=== PATIENT | female | born 1980 | race Caucasian/White ===

== ENCOUNTER 2017-04-22 22:14 | Inpatient (IN) | payer BC ==
[~2017-04-22] VITALS: Ht 162.6 cm; Wt 63.1 kg
[2017-04-22 22:18] VITALS: Ht 162.6 cm; Wt 63.1 kg
--- NOTE | 2017-04-22 22:49 | ERD ---
ER Documentation Chief Complaint Chief Complaint diff breathing, CP x 4 days; had heart sx last mar 28, 2017;not in distress HPI The patient is a 36-year-old female, presenting to the ER because of chronic shortness of breath after she had mitral valve replacement at [place] on March 28, 2017. She saw her surgeon about a week and a half ago and was told that those symptoms were normal. She complains of worsening shortness of breath and left-sided neck pain and left shoulder pain and intermittent left chest pain for the last 4 days. She used to take lots of medication for her chronic low back pain including meloxicam, Neurontin, tramadol, ibuprofen however she stopped it about 2 months ago due to surgery. She denies pleuritic chest pain, abdominal pain, vomiting, dysuria, diarrhea. She does not drink, smokes socially Past medical history: Chronic low back pain, asthma Past medical history: Mitral valve replacement ROS All systems reviewed and are negative except as per history of present illness. Medications Home Meds Reported Medications Albuterol Sulfate* (Ventolin HFA*) 18 Gm Hfa.aer.ad, 2 PUFF INHALATION Q6H, #1 INHALER 04/22/17 Warfarin Sodium* (Warfarin Sodium*) 4 Mg Tablet, 4 MG PO DAILY, TAB 04/22/17 Metoprolol Succinate* (Toprol XL*) 25 Mg Tab.sr.24h, 25 MG PO BID, #30 TAB 04/22/17 Zolpidem Tartrate* (Zolpidem Tartrate*) 10 Mg Tablet, 10 MG PO QHS Y for INSOMNIA, #30 TAB 04/22/17 Allergies Allergies: Coded Allergies: No Known Allergy (Verified , 04/22/17) PMhx/Soc History of Surgery: Yes (lumbar 07, galbladder 10) Anesthesia Reaction: No Hx Neurological Disorder: No Hx Respiratory Disorders: No Hx Cardiac Disorders: No Hx Psychiatric Problems: Yes (Anxiety, Depression) Hx Miscellaneous Medical Probl: Yes (Chronic Pain) Hx Alcohol Use: No Hx Substance Use: No Hx Tobacco Use: No Physical Exam Vitals Vital Signs Date Time Temp Pulse Resp B/P Pulse Ox O2 Delivery O2 Flow Rate FiO2 04/23/17 01:02 68 16 107/62 98 Room Air 04/22/17 22:18 99.6 95 20 102/61 100 Physical Exam Const: No acute distress. Head: Atraumatic. Eyes: Normal Conjunctiva. ENT: Normal External Ears, Nose and Mouth. Neck: Full range of motion. No meningismus. Resp: Clear to auscultation bilaterally. Cardio: Regular rate and rhythm. Abd: Soft, non distended, normal bowel sounds, non tender. Skin: No petechiae or rashes. Back: No midline or flank tenderness. Ext: No cyanosis, or edema. Neur: Awake and alert. No focal deficit Psych: Normal Mood and Affect. Result Diagram: 04/22/17229904/22/172299 Results 24 hrs Laboratory Tests Test 04/22/17 23:00 White Blood Count 15.110^3/ul Red Blood Count 4.0910^6/ul Hemoglobin 12.1g/dl Hematocrit 36.5% Mean Corpuscular Volume 89.2fl Mean Corpuscular Hemoglobin 29.6pg Mean Corpuscular Hemoglobin Concent 33.2g/dl Red Cell Distribution Width 13.3% Platelet Count 97962^3/UL Mean Platelet Volume 9.3fl Neutrophils % 71.0% Lymphocytes % 16.7% Monocytes % 8.5% Eosinophils % 2.6% Basophils % 0.5% Nucleated Red Blood Cells % 0.0/100WBC Neutrophils # 10.710^3/ul Lymphocytes # 2.510^3/ul Monocytes # 1.310^3/ul Eosinophils # 0.410^3/ul Basophils # 0.110^3/ul Nucleated Red Blood Cells # 0.010^3/ul Prothrombin Time 16.7Sec Prothrombin Time Ratio 1.3 INR International Normalized Ratio 1.34 Activated Partial Thromboplast Time 34.4Sec D-Dimer 1238.48ng/ml D-Dimer Comment Sodium Level 137mmol/L Potassium Level 3.6mmol/L Chloride Level 104mmol/L Carbon Dioxide Level 25mmol/L Anion Gap 12 Blood Urea Nitrogen 10mg/dl Creatinine 0.78mg/dl Glucose Level 89mg/dl Calcium Level 9.1mg/dl Troponin I < 0.012ng/ml B-Type Natriuretic Peptide 198PG/ML Current Medications Medications (Trade) Dose Ordered Sig/Kandace Route PRN Reason Start Time Stop Time Status Last Admin Dose Admin Sodium Chloride (NS) 100 ml @ ud STK-MED ONCE .ROUTE 04/23/17 00:42 04/23/17 00:43 DC 04/23/17 01:03 Iohexol 150 ml 150 ml STK-MED ONCE .ROUTE 04/23/17 00:42 04/23/17 00:43 DC 04/23/17 01:03 Sodium Chloride (NS) 500 ml @ 500 mls/hr Q1H ONCE IV 04/23/17 01:30 04/23/17 02:29 Procedures/MDM EKG: Read by emergency physician Rate/Rhythm: Normal Sinus Rhythm 91 beats/min QRS, ST, T-waves: No ST elevation, no T inversion, LAE, NS T abn Impression: Abnormal EKG [address] [address] Radiology Main Line: [phone] DIAGNOSTIC IMAGING REPORT Patient: MAURY PERALTA : 1980 Age: 36 Sex: F MR #: [id number] DOS: 04/22/17 2258 Ordering MD: SHERICE MAX MD Location: E/R Room/Bed: PROCEDURE: Portable chest x-ray. CLINICAL INDICATION: 36-year of age, female. Chest pain TECHNIQUE: Portable AP view of the chest. COMPARISON: None available. FINDINGS: Medical devices: There are wires projected over the heart that likely represent abandoned epicardial pacing wires. Sternal wires from previous cardiac surgery. There is a prosthetic heart valve. Cardiomediastinal contours are within normal limits. Lungs are clear. Negative for pleural effusion or pneumothorax. No acute bony abnormality. Additional comment: None. IMPRESSION: 1. Negative for evidence of an acute chest process. 2. Previous cardiac surgery with a prosthetic heart valve. Recommend correlation with surgical history. Suspected abandoned epicardial pacing wires. RPTAT: HCTS Physician Ra Date Time Electronically viewed and signed by Physician Ra on 04/22/2017 23: 42 CS/ CC: SHERICE MAX MD [address] [address] Radiology Main Line: [phone] DIAGNOSTIC IMAGING REPORT Patient: MAURY PERALTA : 1980 Age: 36 Sex: F [id number] DOS: 04/23/17 0004 Ordering MD: SHERICE MAX MD Location: E/R Room/Bed: PROCEDURE: CTA CHEST WITH CONTRAST CLINICAL INDICATION: 36-year-old female with shortness of breath. TECHNIQUE: The study was performed utilizing a [employer] - On[employer] VCT 64-slice CT scanner. Direct axial sections were obtained from the thoracic inlet through the chest to the upper abdomen with a bolus injection of 100 cc of Omnipaque- 300 nonionic contrast material. Sagittal, coronal and maximal intensity projections re-formations were obtained. One or more of the following dose reduction techniques were utilized: automated exposure control, adjustment of the mA and/or kV according to patient's size and/or use of iterative reconstruction technique. DICOM images are available. The images were reviewed on a PACS workstation. CTD/vol = 35.5 mGy; Total Exam DLP = 313.0 mGy- cm. COMPARISON: Chest x-ray April 22, 2017. FINDINGS: The patient has had a prior median sternotomy. There is a mitral valvular replacement present. There is minimal pericardial thickening. Retained epicardial pacer wires are seen. The aorta is without aneurysmal dilatation or dissection. There are small lymph nodes seen within the mediastinum which are not pathologic by size criteria. The main pulmonary artery is mildly enlarged measuring 3.4 cm. The central pulmonary arteries are without evidence for filling defect to suggest pulmonary embolus or thrombus. Evaluation of the distal pulmonary arterial branches is limited secondary to incomplete opacification. There is no evidence for an infiltrate. No abnormal soft tissue masses or nodular densities are visualized. There is no evidence for a pneumothorax. Scans through the upper abdomen reveals that the upper liver is unremarkable. Surgical clips are present within the gallbladder fossa from prior cholecystectomy. The adrenal glands have a normal appearance. The upper kidneys are functional and are without evidence for obstruction. IMPRESSION: 1. No CTA evidence for thoracic aortic aneurysm/dissection or central pulmonary embolus. 2. Status post median sternotomy with mitral valvular replacement. 3. Retained epicardial pacer wires. 4. Status post cholecystectomy. .Mahendra Houston MD, MD Date Time Electronically viewed and signed by .Mahendra Houston MD, MD on 04/23/2017 01:23 .M/ CC: SHERICE MAX MEDICAL MAKING DECISION: The patient is a 36-year-old female, presenting with acute on chronic chest pain after mitral valve replacement, there is a retained pacemaker wire. Her INR is subtherapeutic, she was treated with her regular dose of Coumadin 4 mg daily, And normal saline 500 mL for clinical dehydration with good response The differential diagnoses considered include but are not limited to acute coronary syndrome, acute myocardial infarction, pericarditis, pulmonary embolism , aortic dissection, pneumonia, pleural effusion, pneumothorax, GERD, chest wall pain. Departure Diagnosis: Primary Impression: Chest pain Additional Impression: Subtherapeutic international normalized ratio (INR) Condition: Stable Comments I discussed the findings with the patient. I discussed the patient with the on- call hospitalist Dr. Guerrero at 1:30 AM who was made aware of the lab, the treatment, the patient condition. The patient is admitted to telemetry for 24 hour observation Disclaimer: Inadvertent spelling and grammatical errors are likely due to EHR/ dictation software use and do not reflect on the overall quality of patient care. Also, please note that the electronic time recorded on this note does not necessarily reflect the actual time of the patient encounter. SHERICE MAX MD Apr 22, 2017 22:49
[2017-04-22] MEDS ORDERED: ZOLP10TA5 PO (23:18)
[2017-04-22] MEDS ORDERED: WARF4TAB52 PO (23:19)
[2017-04-22] MEDS ORDERED: METO-335 PO (23:19)
[2017-04-22] MEDS ORDERED: ALBU18HF INHALATION (23:20)
[2017-04-22 23:36] LABS: BASOPHIL # 0.1 10^3/ul (0.0-0.1); BASOPHILS % 0.5 % (0.0-2.0); EOSINOPHILS # 0.4 10^3/ul (0.0-0.5); EOSINOPHILS % 2.6 % (0.0-7.0); HEMATOCRIT 36.5 % (37.0-47.0); HEMOGLOBIN 12.1 g/dl (12.0-16.0); LYMPHOCYTES # 2.5 10^3/ul (0.8-2.9); LYMPHOCYTES % 16.7 % (15.0-51.0); MEAN CORPUSCULAR HEMOGLOBIN 29.6 pg (29.0-33.0); MEAN CORPUSCULAR HGB CONC 33.2 g/dl (32.0-37.0); MEAN CORPUSCULAR VOLUME 89.2 fl (82.0-101.0); MEAN PLATELET VOLUME 9.3 fl (7.4-10.4); MONOCYTE # 1.3 10^3/ul (0.3-0.9); MONOCYTES % 8.5 % (0.0-11.0); NEUTROPHIL # 10.7 10^3/ul (1.6-7.5); PLATELET COUNT 396 10^3/UL (140-415); RED BLOOD COUNT 4.09 10^6/ul (4.20-5.40); RED CELL DISTRIBUTION WIDTH 13.3 % (11.5-14.5); WHITE BLOOD COUNT 15.1 10^3/ul (4.8-10.8)
--- NOTE | 2017-04-22 23:42 | RADRPT ---
PROCEDURE: Portable chest x-ray. CLINICAL INDICATION: 36-year of age, female. Chest pain TECHNIQUE: Portable AP view of the chest. COMPARISON: None available. FINDINGS: Medical devices: There are wires projected over the heart that likely represent abandoned epicardia l pacing wires. Sternal wires from previous cardiac surgery. There is a prosthetic heart valve. Cardiomediastinal co ntours are within normal limits. Lungs are clear. Negative for pleural effusion or pneumothorax. No acute bony abnormality. Additional comment: None. IMPRESSION: 1. Negative for evidence of an acute chest process. 2. Previous cardiac surgery with a prosthetic heart valve. Recommend correlation with surgical histo ry. Suspected abandoned epicardial pacing wires. RPTAT: HCTS Physician Ra Date Time Electronically viewed and signed by Felipe Knott Physician on 04/22/2017 23:42 CS/
[2017-04-22 23:54] LABS: INR 1.34; PROTIME 16.7 Sec (12.2-14.2); PT RATIO 1.3
[2017-04-22 23:55] LABS: PARTIAL THROMBOPLASTIN TIME 34.4 Sec (25.0-35.0)
[2017-04-22 23:57] LABS: D-DIMER 1238.48 ng/ml (<460)
[2017-04-22 23:59] LABS: ANION GAP 12 (8-16); BLOOD UREA NITROGEN 10 mg/dl (7-20); CALCIUM 9.1 mg/dl (8.4-10.2); CARBON DIOXIDE 25 mmol/L (21-31); CHLORIDE 104 mmol/L (97-110); CREATININE 0.78 mg/dl (0.44-1.00); GLUCOSE 89 mg/dl (70-220); POTASSIUM 3.6 mmol/L (3.5-5.1); SODIUM 137 mmol/L (135-144)
[2017-04-23] VITALS (10 sets, daily range): BP systolic 94–111; BP diastolic 50–57; PULSE 70–83; RESP 17–20
[2017-04-23 00:10] LABS: B-TYPE NATRIURETIC PEPTIDE 198 PG/ML (0-125); TROPONIN-I < 0.012 ng/ml (0.00-0.12)
[2017-04-23] MEDS ORDERED: SOD CHLORIDE 0.9% 100 ML ONE (00:42)
[2017-04-23] MEDS ORDERED: IOHEXOL 300MG/ML 150 ML BTL ONE (00:42)
--- NOTE | 2017-04-23 01:23 | RADRPT ---
PROCEDURE: CTA CHEST WITH CONTRAST CLINICAL INDICATION: 36-year-old female with shortness of breath. TECHNIQUE: The study was performed utilizing a GE [employer]ed VCT 64-slice CT scanner. Direct axia l sections were obtained from the thoracic inlet through the chest to the upper abdomen with a bolus injection of 100 cc of Omnipaque-300 nonionic contrast material. Sagittal, coronal and maximal inte nsity projections re-formations were obtained. One or more of the following dose reduction technique s were utilized: automated exposure control, adjustment of the mA and/or kV according to patient's s ize and/or use of iterative reconstruction technique. DICOM images are available. The images were reviewed on a PACS workstation. CTD/vol = 35.5 mGy; Total Exam DLP = 313.0 mGy-cm. COMPARISON: Chest x-ray April 22, 2017. FINDINGS: The patient has had a prior median sternotomy. There is a mitral valvular replacement present. There is minimal pericardial thickening. Retained epicardial pacer wires are seen. The aorta is without a neurysmal dilatation or dissection. There are small lymph nodes seen within the mediastinum which ar e not pathologic by size criteria. The main pulmonary artery is mildly enlarged measuring 3.4 cm. Th e central pulmonary arteries are without evidence for filling defect to suggest pulmonary embolus or thrombus. Evaluation of the distal pulmonary arterial branches is limited secondary to incomplete o pacification. There is no evidence for an infiltrate. No abnormal soft tissue masses or nodular dens ities are visualized. There is no evidence for a pneumothorax. Scans through the upper abdomen reveals that the upper liver is unremarkable. Surgical clips are pre sent within the gallbladder fossa from prior cholecystectomy. The adrenal glands have a normal appea angel. The upper kidneys are functional and are without evidence for obstruction. IMPRESSION: 1. No CTA evidence for thoracic aortic aneurysm/dissection or central pulmonary embolus. 2. Status post median sternotomy with mitral valvular replacement. 3. Retained epicardial pacer wires. 4. Status post cholecystectomy. .Mahendra Houston MD, Date Time Electronically viewed and signed by .Mahendra Houston MD, on 04/23/2017 01:23 .M/
[2017-04-23] MEDS ORDERED: SOD CHLORIDE 0.9% 500 ML IV ONE (01:30)
[2017-04-23] MEDS ORDERED: DOCUSATE SODIUM 100 MG CAP PO PRN (02:00)
[2017-04-23] MEDS ORDERED: NITROGLYCERIN (SL) 0.4 MG TAB SL PRN (02:00)
[2017-04-23] MEDS ORDERED: ACETAMINOPHEN 325 MG TAB PO PRN (02:00)
[2017-04-23] MEDS ORDERED: WARFARIN 2 MG TAB PO ONE (02:00)
[2017-04-23] MEDS ORDERED: HYDROCODONE/APAP (5/325) TAB PO ONE (02:00)
[2017-04-23] MEDS ORDERED: NACL 0.9% 3 ML SYG IV SCH (02:00)
[2017-04-23] MEDS ORDERED: BISACODYL (EC) 5 MG TAB PO PRN (02:00)
[2017-04-23] MEDS ORDERED: ONDANSETRON 4 MG TAB PO PRN (02:00)
[2017-04-23] MEDS: ALBUTEROL HFA 8 GM INHALER INH SCH ×4 (02:29→20:00)
[2017-04-23] MEDS: morphine 2 MG INJ IV PRN ×4 (04:11→20:39)
[2017-04-23] MEDS ORDERED: KETOROLAC 30 MG INJ IV PRN (06:00)
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
[2017-04-23 09:40] LABS: BASOPHIL # 0.1 10^3/ul (0.0-0.1); BASOPHILS % 0.6 % (0.0-2.0); EOSINOPHILS # 0.4 10^3/ul (0.0-0.5); EOSINOPHILS % 3.5 % (0.0-7.0); HEMATOCRIT 32.6 % (37.0-47.0); HEMOGLOBIN 10.9 g/dl (12.0-16.0); LYMPHOCYTES # 2.7 10^3/ul (0.8-2.9); LYMPHOCYTES % 21.6 % (15.0-51.0); MEAN CORPUSCULAR HEMOGLOBIN 29.9 pg (29.0-33.0); MEAN CORPUSCULAR HGB CONC 33.4 g/dl (32.0-37.0); MEAN CORPUSCULAR VOLUME 89.3 fl (82.0-101.0); MEAN PLATELET VOLUME 9.9 fl (7.4-10.4); MONOCYTE # 1.2 10^3/ul (0.3-0.9); MONOCYTES % 9.7 % (0.0-11.0); PLATELET COUNT 294 10^3/UL (140-415); RED BLOOD COUNT 3.65 10^6/ul (4.20-5.40); RED CELL DISTRIBUTION WIDTH 13.4 % (11.5-14.5); WHITE BLOOD COUNT 12.4 10^3/ul (4.8-10.8)
[2017-04-23] MEDS: METOPROLOL (XL) 25 MG TAB PO SCH ×2 (09:43→20:57)
[2017-04-23 10:34] LABS: ALBUMIN 3.2 g/dl (3.3-4.9); ALBUMIN/GLOBULIN RATIO 1.03; BILIRUBIN,INDIRECT 0.2 mg/dl (0-1.1); BILIRUBIN,TOTAL 0.2 mg/dl (0.2-1.3); CALCIUM 8.4 mg/dl (8.4-10.2); CHOL/HDL RATIO 4.5 RATIO; CREATININE 0.59 mg/dl (0.44-1.00); MAGNESIUM 1.7 mg/dl (1.7-2.5); POTASSIUM 3.6 mmol/L (3.5-5.1); TOTAL PROTEIN 6.3 g/dl (6.1-8.1)
[2017-04-23 10:36] LABS: INR 1.56; PROTIME 18.8 Sec (12.2-14.2); PT RATIO 1.5
[2017-04-23 10:39] LABS: CK-MB 0.4 ng/ml (0.0-2.4); TROPONIN-I 0.013 ng/ml (0.00-0.12)
--- NOTE | 2017-04-23 11:34 | RADRPT ---
PROCEDURE: Ultrasound of the left chest wall. CLINICAL INDICATION: Left chest wall pain. TECHNIQUE: High-resolution sonography of the left chest wall at the site of the painful lesion was performed in the axial and sagittal planes. COMPARISON: CT scan of the chest dated 04/23/2017. FINDINGS: There is no fluid collection or mass. There is no abnormality at the site of the painful lesion. IMPRESSION: 1. No abnormality at the site of the painful lesion in the left chest wall. 2. Any further management regarding the left chest wall pain should be based on clinical grounds. RPTAT: QQ .Dmitri Hanley MD, MD Date Time Electronically viewed and signed by .Dmitri Hanley MD, on 04/23/2017 11:34 .R/
--- NOTE | 2017-04-23 11:41 | RADRPT ---
PROCEDURE: XR Abdomen CLINICAL INDICATION: Pain TECHNIQUE: An AP supine radiograph of the abdomen was submitted. COMPARISON: Previous CT done 01/31/2009 FINDINGS: Surgical clips are again seen within the right upper quadrant compatible with a previous cholecystec carleen. The bowel gas pattern is nonspecific. The liver now appears mildly enlarged but no mass is evident. No pathological calcification is identified. Contrast is seen within the bladder. The osseous elements appear unremarkable. The lung bases are clear. There is evidence of a previous midline sternotomy. IMPRESSION: 1. No previous cholecystectomy. 2. Nonspecific bowel gas pattern. 3. Development of mild hepatomegaly. 4. Contrast is no seen within the bladder. 5. Previous midline sternotomy. Physician James Date Time Electronically viewed and signed by Physician James on 04/23/2017 11:40 RH/
[2017-04-23 12:46] LABS: THYROID STIMULATING HORMONE 4.7 MIU/L (0.465-4.680)
--- NOTE | 2017-04-23 12:57 | CONS ---
Date/Time of Note Date/Time of Note DATE: 04/23/17 TIME: 12:51 Assessment/Plan Assessment/Plan Additional Assessment/Plan Chest wall pain Mitral valve disease status post mechanical mitral valve replacement 03/28/2017 Subtherapeutic INR Possible retained pacer wire -Patient with reproducible chest discomfort with palpation of chest wall and with deep inspiration (patient's chest examined with nurse Fe filler shredder helper). The surgical incision appears well-healed with no erythema. Serial cardiac enzymes have remained negative, ECG with no significant ischemic abnormalities. CT chest with evidence of possible retained pacer wire. Echocardiogram ordered, patient to be seen by CT surgery. Patient recently had her Coumadin dose increased to 6 mg, I have adjusted the dosing and started on Lovenox in the interim until INR is between 2.5-3.5 given mechanical mitral valve. Consultation Date/Type/Reason Admit Date/Time Apr 23, 2017 at 01:34 Type of Consultation: cv Reason for Consultation Chest pain Hx of Present Illness This is a 36-year-old female status post mechanical mitral valve replacement March 28, 2017 at outside facility. In discussion with patient, it appears this was secondary to rheumatic heart disease. Patient continues to have chest discomfort since her surgery. Pain is worse with inspiration and movement of her left arm. She feels she cannot take in a deep breath at times because of her chest discomfort. Because of continued symptoms since discharge, she came to the emergency room for evaluation and care. When she does not taking big breaths or move her left arm, she denies any discomfort. She also has chest wall pain with palpation of the chest. 12 point review of systems was performed with all pertinent positives and negatives mentioned above and all else is negative Past Medical History Mitral valve disease status post mechanical mitral valve replacement March Arthritis Chronic pain Past Surgical History Back surgery Mechanical mitral valve replacement Cholecystectomy Social History Alcohol Use: none Smoking Status: Current every day smoker Drug Use: none Exam/Review of Systems Vital Signs Vitals Vital Signs Date Time Temp Pulse Resp B/P Pulse Ox O2 Delivery O2 Flow Rate FiO2 04/23/17 12:15 70 04/23/17 11:40 98.1 17 105/56 99 04/23/17 01:02 Room Air Exam No apparent distress Constitutional: alert, oriented Head: normocephalic Respiratory: clear to auscultation, normal air movement Cardiovascular: other (S1-S2 heard), regular rate and rhythm, systolic murmur ( Mechanical click) Gastrointestinal: bowel sounds, non-tender, soft Extremities: other (No edema) Results Result Diagram: 04/23/17 0846 04/23/17 0846 Results 24 hrs Laboratory Tests Test 04/22/17 23:00 04/23/17 08:45 04/23/17 08:46 White Blood Count 15.1 H 12.4 H Red Blood Count 4.09 L 3.65 L Hemoglobin 12.1 10.9 L Hematocrit 36.5 L 32.6 L Mean Corpuscular Volume 89.2 89.3 Mean Corpuscular Hemoglobin 29.6 29.9 Mean Corpuscular Hemoglobin Concent 33.2 33.4 Red Cell Distribution Width 13.3 13.4 Platelet Count 396 294 # Mean Platelet Volume 9.3 9.9 Neutrophils % 71.0 64.0 Lymphocytes % 16.7 21.6 Monocytes % 8.5 9.7 Eosinophils % 2.6 3.5 Basophils % 0.5 0.6 Nucleated Red Blood Cells % 0.0 0.0 Neutrophils # 10.7 H 8.0 H Lymphocytes # 2.5 2.7 Monocytes # 1.3 H 1.2 H Eosinophils # 0.4 0.4 Basophils # 0.1 0.1 Nucleated Red Blood Cells # 0.0 0.0 Prothrombin Time 16.7 H 18.8 H Prothrombin Time Ratio 1.3 1.5 INR International Normalized Ratio 1.34 1.56 Activated Partial Thromboplast Time 34.4 D-Dimer 1238.48 H D-Dimer Comment Sodium Level 137 139 Potassium Level 3.6 3.6 Chloride Level 104 109 Carbon Dioxide Level 25 22 Anion Gap 12 12 Blood Urea Nitrogen 10 8 Creatinine 0.78 0.59 Glucose Level 89 104 Calcium Level 9.1 8.4 Troponin I < 0.012 0.013 B-Type Natriuretic Peptide 198 H Creatine Kinase 34 Creatine Kinase Index 1.2 Creatinine Kinase MB (Mass) 0.40 C-Reactive Protein 2.8 H Erythrocyte Sedimentation Rate 25 H Hemoglobin A1c 5.1 Magnesium Level 1.7 Total Bilirubin 0.2 Direct Bilirubin 0.00 Indirect Bilirubin 0.2 Aspartate Amino Transf (AST/SGOT) 35 Alanine Aminotransferase (ALT/SGPT) 33 Alkaline Phosphatase 84 Total Protein 6.3 Albumin 3.2 L Globulin 3.10 Albumin/Globulin Ratio 1.03 Triglycerides Level 125 Cholesterol Level 163 LDL Cholesterol, Calculated 102 HDL Cholesterol 36 Cholesterol/HDL Ratio 4.5 Thyroid Stimulating Hormone (TSH) 4.700 H Medications Medications Current Medications Metoprolol Succinate (Toprol Xl) 25 mg BID PO Last administered on 04/23/17 09:43; Admin Dose 25 MG; Start 04/23/17 at 09:00 Warfarin Sodium (Coumadin) 4 mg DAILY@17 PO ; Start 04/23/17 at 17:00 Zolpidem Tartrate (Ambien) 10 mg QHS PRN PO INSOMNIA; Start 04/23/17 at 02:00 Ondansetron HCl (Zofran Tab) 4 mg Q6H PRN PO NAUSEA AND/OR VOMITING; Start at 02:00 Nitroglycerin (Nitroglycerin (Sl Tab) 0.4 Mg) 1 tab Q5M PRN SL CHEST PAIN; Start 04/23/17 at 02:00 Acetaminophen (Tylenol Tab) 650 mg Q6H PRN PO PAIN LEVEL 1-3 OR FEVER; Start 04/23/17 at 02:00 Morphine Sulfate (morphine) 2 mg Q4H PRN IV PAIN LEVEL 7-10 Last administered on 04/23/17 09:43; Admin Dose 2 MG; Start 04/23/17 at 02:00 Docusate Sodium (Colace) 100 mg Q12H PRN PO CONSTIPATION; Start 04/23/17 at 02 :00 Bisacodyl (Dulcolax) 5 mg DAILY PRN PO CONSTIPATION; Start 04/23/17 at 02:00 Ketorolac Tromethamine (Toradol) 30 mg Q6H PRN IV PAIN Last administered on 06:13; Admin Dose 30 MG; Start 04/23/17 at 06:00; Stop 04/24/17 at 05: 59 Procedures Procedures ECG demonstrates sinus rhythm at 91 bpm, QRS 72 ms, nonspecific ST abnormalities Fabiano Alvarado DO Apr 23, 2017 12:57
--- NOTE | 2017-04-23 14:44 | RADRPT ---
Echocardiogram Report Patient Name: MAURY PERALTA Gender: Female Date: 1980 Study Date: 23-Apr-2017 University Relations Director: Thierry [facility] Location: [address] Ref. Physician: MORGAN GOMEZ Quality: Adequate Procedures: Transthoracic echocardiogram with complete 2D, M-Mode, and doppler examination. Indications: Chest Pain. 2D/M Mode Doppler Measurement Value Normal Ranges Measurement Value Normal Ranges LVIDd 2D 4.5 3.5 - 5.6 cm AV Peak Jorge 1.7 m/sec LVIDs 2D 3.6 2.1 - 4.1 cm AV Peak PG 11.0 mmHg FS 2D 21.2 % LVOT Peak Jroge 1.1 m/sec LVPWd 2D 1.1 0.6 - 1.1 cm LVOT Peak PG 4.0 mmHg IVSd 2D 1.1 0.6 - 1.1 cm MV Peak Jorge 1.7 m/sec IVS/LVPW 2D 1.0 MV Peak PG 11.0 mmHg AoR Diam 2D 2.6 2.0 - 3.7 cm TR Peak Jorge 2.5 m/sec LA/Ao 2D 2 0 - 1 TR Peak PG 26.0 mmHg EDV 2D 92.3 cm3 RVSP 29.0 mmHg ESV 2D 45.1 cm3 LA Dimen 2D 4.3 2.3 - 4.0 cm Findings Left Ventricle: Normal left ventricular systolic function. Normal left ventricular cavity size. Mild concentric left ventricular hypertrophy. Ejection fraction is visually estimated at 55 %. Right Ventricle: Normal right ventricular size. Normal right ventricular systolic function. Left Atrium: There is moderate enlargement of left atrium. Right Atrium: The right atrium is normal in size. Mitral Valve: Trace mitral regurgitation. The Mitral Valve Mechanical Prosthesis is well seated. There is no evidence of perivalvular leak. MeanPG 5.00 mmHg. Aortic Valve: Normal appearance of the aortic valve. No significant aortic stenosis or insufficiency. Tricuspid Valve: Normal appearance of the tricuspid valve. Estimated peak PA systolic pressure 29 mmHg. There is mild to moderate tricuspid regurgitation. Pulmonic Valve: Pulmonic valve not well visualized. There is trace pulmonic regurgitation. Pericardium: Normal pericardium with no significant pericardial effusion. Aorta: Normal aortic root. IVC: Normal size and normal respiratory collapse consistent with normal right atrial pressure. Conclusions 1.Normal left ventricular systolic function. Normal left ventricular cavity size. Mild concentric left ventricular hypertrophy. Ejection fraction is visually estimated at 55 %. 2.Normal right ventricular size. Normal right ventricular systolic function. 3.There is moderate enlargement of left atrium. 4.The right atrium is normal in size. 5.Trace mitral regurgitation. The Mitral Valve Mechanical Prosthesis is well seated. There is no evidence of perivalvular leak. MeanPG 5.00 mmHg. 6.Estimated peak PA systolic pressure 29 mmHg. There is mild to moderate tricuspid regurgitation. 7.No significant aortic stenosis or insufficiency. 8.Normal pericardium with no significant pericardial effusion. Electronically Signed By: Fabiano Alvarado 23-Apr-2017 14:43:26 -0800 Patient Name: MAURY PERALTA Study Date: 23-Apr-2017 [id number]
--- NOTE | 2017-04-23 15:29 | PN ---
Date/Time of Note Date/Time of Note DATE: 04/23/17 TIME: 15:18 Assessment/Plan VTE Prophylaxis VTE Prophylaxis Intervention: LMWH Lines/Catheters IV Catheter Type (from Nrsg): Saline Lock Assessment/Plan Assessment/Plan 1. Chest pain, most likely secondary to retained pacer wires - Cardiology on board and recommendations appreciated. - CT surgery on board and awaiting further recommendations regarding retained pacer wires that is probably source of patients discomfort - ECHO shows EF 55% and mechanical MV sitting in proper position - Pain relief - Patient had original surgery Mar 28, 2017 at [facility] by Dr. Jordan. 2. Leukocytosis - most likely stress reaction given afebrile and normal diff on CBC - WBC trending downward - Continue monitoring - blood cultures obtained 3. Mechanical mitral valve - Patient on coumadin and INR subtherapeutic. Will continue on lovenox/ coumadin bridge per cardiology 4. Elevated TSH - will advise to have repeated once acute issue resolves 5. Disposition - Awaiting input from CT surgery Subjective 24 Hr Interval Summary Free Text/Dictation Patient still experiencing discomfort at sternal site and difficulty taking a deep breath. Patient has mild relief with pain medication Exam/Review of Systems Vital Signs Vitals Vital Signs Date Time Temp Pulse Resp B/P Pulse Ox O2 Delivery O2 Flow Rate FiO2 04/23/17 12:15 70 04/23/17 11:40 98.1 17 105/56 99 04/23/17 01:02 Room Air Exam General: Patient is lying in bed, appears uncomfortably, awake and alert Neck: Supple with full range of motion Chest: Tender to palpation at the level of the left anterior chest wall above the left breast, midline incision healing well Lungs: Clear to auscultation bilaterally no crackles rales or wheezing Heart: Regular rate rhythm, click from mechanical valve appreciated Abdomen: Soft , mild epigastric tenderness palpation, distended, bowel sounds are present. No guarding no rebound tenderness , Extremities: Normal to inspection, no edema no cyanosis Neurologic: Normal mental status, speech normal, cranial nerves II through XII are intact, motor and sensory are intact, no focal weakness Results Result Diagram: 04/23/17 0846 04/23/17 0846 Results 24 hrs Laboratory Tests Test 04/22/17 23:00 04/23/17 08:45 04/23/17 08:46 White Blood Count 15.1 H 12.4 H Red Blood Count 4.09 L 3.65 L Hemoglobin 12.1 10.9 L Hematocrit 36.5 L 32.6 L Mean Corpuscular Volume 89.2 89.3 Mean Corpuscular Hemoglobin 29.6 29.9 Mean Corpuscular Hemoglobin Concent 33.2 33.4 Red Cell Distribution Width 13.3 13.4 Platelet Count 396 294 # Mean Platelet Volume 9.3 9.9 Neutrophils % 71.0 64.0 Lymphocytes % 16.7 21.6 Monocytes % 8.5 9.7 Eosinophils % 2.6 3.5 Basophils % 0.5 0.6 Nucleated Red Blood Cells % 0.0 0.0 Neutrophils # 10.7 H 8.0 H Lymphocytes # 2.5 2.7 Monocytes # 1.3 H 1.2 H Eosinophils # 0.4 0.4 Basophils # 0.1 0.1 Nucleated Red Blood Cells # 0.0 0.0 Prothrombin Time 16.7 H 18.8 H Prothrombin Time Ratio 1.3 1.5 INR International Normalized Ratio 1.34 1.56 Activated Partial Thromboplast Time 34.4 D-Dimer 1238.48 H D-Dimer Comment Sodium Level 137 139 Potassium Level 3.6 3.6 Chloride Level 104 109 Carbon Dioxide Level 25 22 Anion Gap 12 12 Blood Urea Nitrogen 10 8 Creatinine 0.78 0.59 Glucose Level 89 104 Calcium Level 9.1 8.4 Troponin I < 0.012 0.013 B-Type Natriuretic Peptide 198 H Creatine Kinase 34 Creatine Kinase Index 1.2 Creatinine Kinase MB (Mass) 0.40 C-Reactive Protein 2.8 H Erythrocyte Sedimentation Rate 25 H Hemoglobin A1c 5.1 Magnesium Level 1.7 Total Bilirubin 0.2 Direct Bilirubin 0.00 Indirect Bilirubin 0.2 Aspartate Amino Transf (AST/SGOT) 35 Alanine Aminotransferase (ALT/SGPT) 33 Alkaline Phosphatase 84 Total Protein 6.3 Albumin 3.2 L Globulin 3.10 Albumin/Globulin Ratio 1.03 Triglycerides Level 125 Cholesterol Level 163 LDL Cholesterol, Calculated 102 HDL Cholesterol 36 Cholesterol/HDL Ratio 4.5 Thyroid Stimulating Hormone (TSH) 4.700 H Medications Medications Current Medications Metoprolol Succinate (Toprol Xl) 25 mg BID PO Last administered on 04/23/17t 09:43; Admin Dose 25 MG; Start 04/23/17 at 09:00 Zolpidem Tartrate (Ambien) 10 mg QHS PRN PO INSOMNIA; Start 04/23/17 at 02:00 Ondansetron HCl (Zofran Tab) 4 mg Q6H PRN PO NAUSEA AND/OR VOMITING; Start at 02:00 Nitroglycerin (Nitroglycerin (Sl Tab) 0.4 Mg) 1 tab Q5M PRN SL CHEST PAIN; Start 04/23/17 at 02:00 Acetaminophen (Tylenol Tab) 650 mg Q6H PRN PO PAIN LEVEL 1-3 OR FEVER; Start 04/23/17 at 02:00 Morphine Sulfate (morphine) 2 mg Q4H PRN IV PAIN LEVEL 7-10 Last administered on 04/23/17 09:43; Admin Dose 2 MG; Start 04/23/17 at 02:00 Docusate Sodium (Colace) 100 mg Q12H PRN PO CONSTIPATION; Start 04/23/17 at 02 :00 Bisacodyl (Dulcolax) 5 mg DAILY PRN PO CONSTIPATION; Start 04/23/17 at 02:00 Ketorolac Tromethamine (Toradol) 30 mg Q6H PRN IV PAIN Last administered on 06:13; Admin Dose 30 MG; Start 04/23/17 at 06:00; Stop 04/24/17 at 05: 59 Warfarin Sodium (Coumadin) 6 mg DAILY@17 PO ; Start 04/23/17 at 17:00 Enoxaparin Sodium (Lovenox) 65 mg Q12 SC ; Start 04/23/17 at 21:00 MALVIN PERDUE MD Apr 23, 2017 15:29
[2017-04-23] MEDS ORDERED: HYDROCODONE/APAP (5/325) TAB PO PRN (15:30)
[2017-04-23] MEDS ORDERED: HYDROCODONE/APAP (10/325) TAB PO PRN (15:30)
[2017-04-23] MEDS ORDERED: WARFARIN 2 MG TAB PO SCH (17:00)
[2017-04-23] MEDS: WARFARIN 3 MG TAB PO SCH (20:43)
[2017-04-23] MEDS: ENOXAPARIN 80 MG/0.8 ML SYG SC SCH (20:54)
[2017-04-24] VITALS (11 sets, daily range): BP systolic 95–104; BP diastolic 53–56; PULSE 67–83; RESP 18–20
[2017-04-24] MEDS: morphine 2 MG INJ IV PRN ×6 (01:02→22:31)
[2017-04-24] MEDS ORDERED: AL HYDROX/MG HYDROX/SIMETH 30 ML CUP PO PRN (01:30)
[2017-04-24] MEDS ORDERED: LIDOCAINE 5% PATCH TD ONE (01:30)
[2017-04-24] MEDS: ALBUTEROL HFA 8 GM INHALER INH SCH ×4 (02:00→21:05)
[2017-04-24] MEDS: ZOLPIDEM 5 MG TAB PO PRN ×2 (02:30→21:02)
[2017-04-24 06:38] LABS: BASOPHIL # 0.1 10^3/ul (0.0-0.1); BASOPHILS % 0.7 % (0.0-2.0); EOSINOPHILS # 0.4 10^3/ul (0.0-0.5); HEMATOCRIT 34.1 % (37.0-47.0); HEMOGLOBIN 11.4 g/dl (12.0-16.0); LYMPHOCYTES # 2.2 10^3/ul (0.8-2.9); LYMPHOCYTES % 24.6 % (15.0-51.0); MEAN CORPUSCULAR HEMOGLOBIN 29.5 pg (29.0-33.0); MEAN CORPUSCULAR HGB CONC 33.4 g/dl (32.0-37.0); MEAN CORPUSCULAR VOLUME 88.3 fl (82.0-101.0); MEAN PLATELET VOLUME 9.5 fl (7.4-10.4); MONOCYTE # 0.8 10^3/ul (0.3-0.9); MONOCYTES % 9.3 % (0.0-11.0); NEUTROPHIL # 5.3 10^3/ul (1.6-7.5); NEUTROPHILS % 59.7 % (39.0-77.0); PLATELET COUNT 342 10^3/UL (140-415); RED BLOOD COUNT 3.86 10^6/ul (4.20-5.40); RED CELL DISTRIBUTION WIDTH 13.3 % (11.5-14.5); WHITE BLOOD COUNT 8.8 10^3/ul (4.8-10.8)
[2017-04-24 07:01] LABS: INR 1.51; PROTIME 18.5 Sec (11.9-14.9); PT RATIO 1.4
[2017-04-24 07:26] LABS: ALBUMIN 3.4 g/dl (3.3-4.9); CALCIUM 8.7 mg/dl (8.4-10.2); CREATININE 0.6 mg/dl (0.44-1.00); MAGNESIUM 1.8 mg/dl (1.7-2.5); PHOSPHORUS 4.2 mg/dl (2.5-4.9); POTASSIUM 3.9 mmol/L (3.5-5.1)
[2017-04-24] MEDS: ENOXAPARIN 80 MG/0.8 ML SYG SC SCH ×2 (08:16→21:01)
[2017-04-24] MEDS: METOPROLOL (XL) 25 MG TAB PO SCH ×2 (08:17→21:00)
--- NOTE | 2017-04-24 08:26 | CONS ---
Date/Time of Note Date/Time of Note DATE: 04/24/17 TIME: 08:23 Assessment/Plan Assessment/Plan Chief Complaint/Hosp Course Chest wall pain Mitral valve disease status post mechanical mitral valve replacement 03/28/2017 with intact function of valve Subtherapeutic INR Possible retained pacer wire No evidence of PE preserved LV function Problems: Additional Assessment/Plan patient's complaints of unclear etiology CTS pending for assessment of significance of retained epicardial wires Consultation Date/Type/Reason Admit Date/Time Apr 23, 2017 at 01:34 Initial Consult Date Type of Consultation: cv 24 HR Interval Summary Free Text/Dictation sad, crying, reports sob, no distress though, reports chest pain, sharp, inspirational Detailed Summary Respiratory: shortness of breath Cardiovascular: no complaints Gastrointestinal: no complaints Musculoskeletal: no complaints Skin: no complaints Neurologic: no complaints Endocrine: no complaints Exam/Review of Systems Vital Signs Vitals Vital Signs Date Time Temp Pulse Resp B/P Pulse Ox O2 Delivery O2 Flow Rate FiO2 04/24/17 08:02 98.3 74 20 95/55 97 04/23/17 01:02 Room Air Intake and Output 04/23/17 04/23/17 04/24/17 15:00 23:00 07:00 Intake Total 850 ml 500 ml Balance 850 ml 500 ml Exam Constitutional: alert, oriented Head: atraumatic, normocephalic Neck: supple Respiratory: clear to auscultation Cardiovascular: regular rate and rhythm Gastrointestinal: soft Musculoskeletal: nl extremities to inspection Extremities: normal pulses Neurological: DISTRIBUTOR CLEANER II-XII intact Results Result Diagram: 04/24/17 0604/24/17 0605 Results 24 hrs Laboratory Tests Test 04/23/17 08:45 04/23/17 08:46 04/24/17 06:05 Prothrombin Time 18.8 H 18.5 H Prothrombin Time Ratio 1.5 1.4 INR International Normalized Ratio 1.56 1.51 Creatine Kinase 34 Creatine Kinase Index 1.2 Creatinine Kinase MB (Mass) 0.40 Troponin I 0.013 C-Reactive Protein 2.8 H White Blood Count 12.4 H 8.8 # Red Blood Count 3.65 L 3.86 L Hemoglobin 10.9 L 11.4 L Hematocrit 32.6 L 34.1 L Mean Corpuscular Volume 89.3 88.3 Mean Corpuscular Hemoglobin 29.9 29.5 Mean Corpuscular Hemoglobin Concent 33.4 33.4 Red Cell Distribution Width 13.4 13.3 Platelet Count 294 # 342 Mean Platelet Volume 9.9 9.5 Neutrophils % 64.0 59.7 Lymphocytes % 21.6 24.6 Monocytes % 9.7 9.3 Eosinophils % 3.5 5.0 Basophils % 0.6 0.7 Nucleated Red Blood Cells % 0.0 0.0 Neutrophils # 8.0 H 5.3 Lymphocytes # 2.7 2.2 Monocytes # 1.2 H 0.8 Eosinophils # 0.4 0.4 Basophils # 0.1 0.1 Nucleated Red Blood Cells # 0.0 0.0 Erythrocyte Sedimentation Rate 25 H Sodium Level 139 138 Potassium Level 3.6 3.9 Chloride Level 109 107 Carbon Dioxide Level 22 22 Anion Gap 12 13 Blood Urea Nitrogen 8 8 Creatinine 0.59 0.60 Glucose Level 104 93 Hemoglobin A1c 5.1 Calcium Level 8.4 8.7 Magnesium Level 1.7 1.8 Total Bilirubin 0.2 Direct Bilirubin 0.00 Indirect Bilirubin 0.2 Aspartate Amino Transf (AST/SGOT) 35 Alanine Aminotransferase (ALT/SGPT) 33 Alkaline Phosphatase 84 Total Protein 6.3 Albumin 3.2 L 3.4 Globulin 3.10 Albumin/Globulin Ratio 1.03 Triglycerides Level 125 Cholesterol Level 163 LDL Cholesterol, Calculated 102 HDL Cholesterol 36 Cholesterol/HDL Ratio 4.5 Thyroid Stimulating Hormone (TSH) 4.700 H Phosphorus Level 4.2 Medications Medications Current Medications Metoprolol Succinate (Toprol Xl) 25 mg BID PO Last administered on 04/23/17 09:43; Admin Dose 25 MG; Start 04/23/17 at 09:00 Zolpidem Tartrate (Ambien) 10 mg QHS PRN PO INSOMNIA Last administered on 02:30; Admin Dose 10 MG; Start 04/23/17 at 02:00 Ondansetron HCl (Zofran Tab) 4 mg Q6H PRN PO NAUSEA AND/OR VOMITING; Start at 02:00 Nitroglycerin (Nitroglycerin (Sl Tab) 0.4 Mg) 1 tab Q5M PRN SL CHEST PAIN; Start 04/23/17 at 02:00 Acetaminophen (Tylenol Tab) 650 mg Q6H PRN PO PAIN LEVEL 1-3 OR FEVER; Start 04/23/17 at 02:00 Morphine Sulfate (morphine) 2 mg Q4H PRN IV PAIN LEVEL 7-10 Last administered on 04/24/17 08:06; Admin Dose 2 MG; Start 04/23/17 at 02:00 Docusate Sodium (Colace) 100 mg Q12H PRN PO CONSTIPATION; Start 04/23/17 at 02 :00 Bisacodyl (Dulcolax) 5 mg DAILY PRN PO CONSTIPATION; Start 04/23/17 at 02:00 Warfarin Sodium (Coumadin) 6 mg DAILY@17 PO Last administered on 04/23/17 20: 43; Admin Dose 6 MG; Start 04/23/17 at 17:00 Enoxaparin Sodium (Lovenox) 65 mg Q12 SC Last administered on 04/24/17 08:16; Admin Dose 65 MG; Start 04/23/17 at 21:00 Acetaminophen/ Hydrocodone Bitart ([place] (5/325)) 1 tab Q4H PRN PO PAIN LEVEL 4 -6; Start 04/23/17 at 15:30 Acetaminophen/ Hydrocodone Bitart ([place] (10/325)) 1 tab Q4H PRN PO SEVERE PAIN LEVEL 7-10; Start 04/23/17 at 15:30 Al Hydrox/Mg Hydrox/Simethicone (Mag-Al Plus) 30 ml Q6H PRN PO GASTROINTESTINAL UPSET Last administered on 04/24/17 02:17; Admin Dose 30 ML; Start 04/24/17 at 01:30 SALUD BRADSHAW MD Apr 24, 2017 08:26
--- NOTE | 2017-04-24 11:33 | PN ---
Date/Time of Note Date/Time of Note DATE: 04/24/17 TIME: 11:33 Assessment/Plan VTE Prophylaxis VTE Prophylaxis Intervention: LMWH Lines/Catheters IV Catheter Type (from Nrsg): Saline Lock Assessment/Plan Assessment/Plan 1. Chest pain, unknown etiology - Patient states the pain feels more like a soreness that is very troublesome and severe - Cardiology on board and recommendations appreciated. - CT surgery on board and after discussion does not believe retained wires are causing this pain. Will assess patient - ECHO shows EF 55% and mechanical MV sitting in proper position - Patient had original surgery Mar 28, 2017 at [facility] by Dr. Jordan. When discussed with patient returning to see this surgeon she said he was a "mess" and began to cry thinking she would have to live with this pain - Dr. Ross consulted for pain management to provide patient with adequate relief 2. Leukocytosis- normalized - Continue monitoring - blood cultures obtained and are negative 3. Mechanical mitral valve - Patient on Coumadin and INR subtherapeutic. Will continue on lovenox/ coumadin bridge per cardiology 4. Elevated TSH - will advise to have repeated once acute issue resolves 5. Disposition - Awaiting CT surgery assessment Subjective 24 Hr Interval Summary Free Text/Dictation Patient frustrated that no decision has been made yet regarding the pacer wires and etiology of her pain. States morphine is keeping her pain under control but only for a short amount of time. Spoke with Dr. Matias who will come assess the patient but believes pain is not related to pacer wires. Advised patient that she may need to see her original CT surgeon at which time she started to cry and said he was a "mess." Exam/Review of Systems Vital Signs Vitals Vital Signs Date Time Temp Pulse Resp B/P Pulse Ox O2 Delivery O2 Flow Rate FiO2 04/24/17 08:34 67 04/24/17 08:02 98.3 20 95/55 97 04/23/17 01:02 Room Air Intake and Output 04/23/17 04/23/17 04/24/17 15:00 23:00 07:00 Intake Total 850 ml 500 ml Balance 850 ml 500 ml Exam General: Patient is lying in bed, appears uncomfortable, awake and alert Neck: Supple with full range of motion Chest: Tender to deep palpation at the level of the left anterior chest wall above clavicle, midline incision healing well Lungs: Clear to auscultation bilaterally no crackles rales or wheezing Heart: Regular rate rhythm, click from mechanical valve appreciated Abdomen: Soft , bowel sounds are present. No guarding no rebound tenderness , Extremities: Normal to inspection, no edema no cyanosis Neurologic: Normal mental status, speech normal, cranial nerves II through XII are intact, motor and sensory are intact, no focal weakness Results Result Diagram: 04/24/1760404/24/17604 Results 24 hrs Laboratory Tests Test 04/24/17 06:05 White Blood Count 8.8 # Red Blood Count 3.86 L Hemoglobin 11.4 L Hematocrit 34.1 L Mean Corpuscular Volume 88.3 Mean Corpuscular Hemoglobin 29.5 Mean Corpuscular Hemoglobin Concent 33.4 Red Cell Distribution Width 13.3 Platelet Count 342 Mean Platelet Volume 9.5 Neutrophils % 59.7 Lymphocytes % 24.6 Monocytes % 9.3 Eosinophils % 5.0 Basophils % 0.7 Nucleated Red Blood Cells % 0.0 Neutrophils # 5.3 Lymphocytes # 2.2 Monocytes # 0.8 Eosinophils # 0.4 Basophils # 0.1 Nucleated Red Blood Cells # 0.0 Prothrombin Time 18.5 H Prothrombin Time Ratio 1.4 INR International Normalized Ratio 1.51 Sodium Level 138 Potassium Level 3.9 Chloride Level 107 Carbon Dioxide Level 22 Anion Gap 13 Blood Urea Nitrogen 8 Creatinine 0.60 Glucose Level 93 Calcium Level 8.7 Phosphorus Level 4.2 Magnesium Level 1.8 Albumin 3.4 Medications Medications Current Medications Metoprolol Succinate (Toprol Xl) 25 mg BID PO Last administered on 04/23/17 09:43; Admin Dose 25 MG; Start 04/23/17 at 09:00 Zolpidem Tartrate (Ambien) 10 mg QHS PRN PO INSOMNIA Last administered on 02:30; Admin Dose 10 MG; Start 04/23/17 at 02:00 Ondansetron HCl (Zofran Tab) 4 mg Q6H PRN PO NAUSEA AND/OR VOMITING; Start at 02:00 Nitroglycerin (Nitroglycerin (Sl Tab) 0.4 Mg) 1 tab Q5M PRN SL CHEST PAIN; Start 04/23/17 at 02:00 Acetaminophen (Tylenol Tab) 650 mg Q6H PRN PO PAIN LEVEL 1-3 OR FEVER; Start 04/23/17 at 02:00 Morphine Sulfate (morphine) 2 mg Q4H PRN IV PAIN LEVEL 7-10 Last administered on 04/24/17 08:06; Admin Dose 2 MG; Start 04/23/17 at 02:00 Docusate Sodium (Colace) 100 mg Q12H PRN PO CONSTIPATION; Start 04/23/17 at 02 :00 Bisacodyl (Dulcolax) 5 mg DAILY PRN PO CONSTIPATION; Start 04/23/17 at 02:00 Warfarin Sodium (Coumadin) 6 mg DAILY@17 PO Last administered on 04/23/17 20: 43; Admin Dose 6 MG; Start 04/23/17 at 17:00 Enoxaparin Sodium (Lovenox) 65 mg Q12 SC Last administered on 04/24/17 08:16; Admin Dose 65 MG; Start 04/23/17 at 21:00 Al Hydrox/Mg Hydrox/Simethicone (Mag-Al Plus) 30 ml Q6H PRN PO GASTROINTESTINAL UPSET Last administered on 04/24/17 02:17; Admin Dose 30 ML; Start 04/24/17 at 01:30 Oxycodone/ Acetaminophen (Percocet (5/ 325)) 1 tab Q4H PRN PO PAIN LEVEL 4-6; Start 04/24/17 at 11:30; Status MALVIN MERAZ MD Apr 24, 2017 11:33
[2017-04-24] MEDS ORDERED: OXYCODONE/ACETAMINOPHEN (10/325) TAB PO PRN (12:00)
[2017-04-24] MEDS: OXYCODONE/ACETAMINOPHEN (5/325) TAB PO PRN ×2 (18:03→23:36)
[2017-04-24] MEDS: WARFARIN 3 MG TAB PO SCH (18:03)
[2017-04-25] VITALS (13 sets, daily range): BP systolic 93–103; BP diastolic 52–59; PULSE 61–83; RESP 17–20
[2017-04-25 00:50] LABS: UR RBC 2 /HPF (0-5); UR SQUAMOUS EPITHELIAL CELL FEW /HPF (FEW)
[2017-04-25 01:40] LABS: ADD UMIC NO; UR ASCORBIC ACID 40 mg/dL (NEGATIVE); UR BILIRUBIN (Dip) NEGATIVE (NEGATIVE); UR BLOOD (Dip) NEGATIVE (NEGATIVE); UR CLARITY CLEAR (CLEAR); UR COLOR YELLOW (YELLOW); UR GLUCOSE (Dip) NEGATIVE (NEGATIVE); UR KETONES (Dip) NEGATIVE (NEGATIVE); UR LEUKOCYTE ESTERASE (Dip) NEGATIVE Leu/ul (NEGATIVE); UR NITRITE (Dip) NEGATIVE (NEGATIVE); UR SPECIFIC GRAVITY (Dip) 1.015 (1.003-1.030); UR TOTAL PROTEIN (Dip) NEGATIVE (NEGATIVE); UR UROBILINOGEN (Dip) NEGATIVE (NEGATIVE)
[2017-04-25] MEDS: ALBUTEROL HFA 8 GM INHALER INH SCH ×4 (02:00→20:13)
[2017-04-25] MEDS: morphine 2 MG INJ IV PRN (03:04)
[2017-04-25 06:15] LABS: BASOPHIL # 0.1 10^3/ul (0.0-0.1); BASOPHILS % 0.7 % (0.0-2.0); EOSINOPHILS # 0.5 10^3/ul (0.0-0.5); EOSINOPHILS % 5.4 % (0.0-7.0); HEMATOCRIT 34.5 % (37.0-47.0); HEMOGLOBIN 11.6 g/dl (12.0-16.0); LYMPHOCYTES # 2.5 10^3/ul (0.8-2.9); LYMPHOCYTES % 25.8 % (15.0-51.0); MEAN CORPUSCULAR HEMOGLOBIN 29.8 pg (29.0-33.0); MEAN CORPUSCULAR HGB CONC 33.6 g/dl (32.0-37.0); MEAN CORPUSCULAR VOLUME 88.7 fl (82.0-101.0); MEAN PLATELET VOLUME 9.5 fl (7.4-10.4); MONOCYTE # 0.8 10^3/ul (0.3-0.9); MONOCYTES % 8.3 % (0.0-11.0); NEUTROPHIL # 5.6 10^3/ul (1.6-7.5); NEUTROPHILS % 59.3 % (39.0-77.0); PLATELET COUNT 334 10^3/UL (140-415); RED BLOOD COUNT 3.89 10^6/ul (4.20-5.40); RED CELL DISTRIBUTION WIDTH 13.3 % (11.5-14.5); WHITE BLOOD COUNT 9.5 10^3/ul (4.8-10.8)
[2017-04-25 06:31] LABS: INR 1.57; PROTIME 19.1 Sec (11.9-14.9); PT RATIO 1.5
[2017-04-25 06:47] LABS: ALBUMIN 3.4 g/dl (3.3-4.9); CALCIUM 9.2 mg/dl (8.4-10.2); CREATININE 0.63 mg/dl (0.44-1.00); MAGNESIUM 1.9 mg/dl (1.7-2.5); PHOSPHORUS 4.4 mg/dl (2.5-4.9); POTASSIUM 4.2 mmol/L (3.5-5.1)
--- NOTE | 2017-04-25 07:04 | CONS ---
DATE OF ADMISSION: 04/24/2017 DATE OF CONSULTATION: REASON FOR CONSULTATION: Evaluation for pacing wires. HISTORY OF PRESENT ILLNESS: This is a 36-year-old female who underwent a mitral valve surgery, rece ntly was anticoagulated. Pacing wires were clipped at [facility]. The patient is now emerald ng admitted complaining of discomfort at the site of the pacing wire site. The patient is anticoagu lated. White count is 8, which is down from 15 with a hemoglobin of 11.4. Left-sided chest x-ray s hows the sternum is intact, mitral valve prosthesis in place and it appears very faintly that the pa cing wires are inside the chest. PAST MEDICAL HISTORY: History of mitral valve disease. PAST SURGICAL HISTORY: Mitral valve replacement. ALLERGIES: NONE. SOCIAL HISTORY: No smoking, drinking or drug use. PHYSICAL EXAMINATION: VITAL SIGNS: Blood pressure is 95/56, pulse is 79, respirations 20, saturations 99%. CARDIOVASCULAR: Normal S1, S2. LUNGS: Clear. ABDOMEN: Soft. EXTREMITIES: Warm, pacing wires site examined. LABORATORY VALUES: Hemoglobin 11.4, white count 8.8. INR is 1.5. IMPRESSION: Status post mitral valve replacement recently at [facility]. Mitral valve re placement, patient's pacing wires have been retained. At this time, would recommend to leave the wi res intact unless there are signs of sepsis, which at that time, the patient probably has to be mack sferred to [place] back to the original surgeon. Discussed with the patient. All questions ans wered. Dictated By: SHOAIB OLIVA/POONAM Conf#: [id number] DID#: [id number] CC: MORGAN GOMEZ MD;*EndCC*
[2017-04-25] MEDS: OXYCODONE/ACETAMINOPHEN (5/325) TAB PO PRN ×4 (07:52→20:24)
--- NOTE | 2017-04-25 07:57 | CONS ---
Date/Time of Note Date/Time of Note DATE: 04/25/17 TIME: 07:46 Assessment/Plan Assessment/Plan Additional Assessment/Plan Status post mitral valve replacement Left supraclavicular fossa pain Pleuritic pain with radiations to anterior left-sided chest wall Suggest is continue morphine, okay to continue low dose of Percocet Treatment primarily with nonsteroidal anti-inflammatory medications high-dose with Protonix to be taken only with meals. We will order MRI left shoulder rule out partial rotator cuff tear or left shoulder strain secondary to recent surgery. Doubt this is related to retain cardiac catheter but that determination is primarily being addressed by thoracic surgeon. Consultation Date/Type/Reason Admit Date/Time Apr 23, 2017 at 01:34 Type of Consultation: Pain management Hx of Present Illness 28-year-old female who is status post mitral valve prolapse probably 1 month ago. She was taking Percocet up to 2 weeks ago and after discontinuing this began developing left supra fossa pain which radiates into her left shoulder and left anterior upper chest wall. Without nausea vomiting shortness of breath cough exertional pain not present. Patient denies hemoptysis upper respiratory infection there is no prior history of trauma to her left shoulder is no past medical history of C-spine osteoarthritis which is documented. Patient is status post surgical intervention of lower thoracic spine approximately 10 years ago. The pain increased in severity with increasing respirations she also states that she is anxious when she takes deep breaths which exacerbates the pain. As an outpatient was taking only Percocet and Tylenol as needed. She says did nothing for pain other than some partial resolution when she was taking Percocet. Pain is graded 10/10 with medications 5/10 she is asking to continue her cassette and is nervous that the morphine will be taken away also. Description of pain is radicular sharp throbbing. With current medication she denies constipation itching mental cloudiness sweating fatigue drowsiness she is [place] for pain control medications anxious that these will be removed. She appears to be very anxious she has no past medical history of alcohol or drug abuse denies substance abuse denies she is negotiating and continue with the current pain control medications she is not at attempting to obtain higher levels of opioids but discontinue she is currently taking the route of administration for the morphine is orally indication that she uses pain medication in response to stressors in addition to pain she states that the pain is interrupting her physical functioning social relations mood sleeping patterns and overall function. Social History Alcohol Use: none Smoking Status: Current every day smoker Drug Use: none Exam/Review of Systems Vital Signs Vitals Vital Signs Date Time Temp Pulse Resp B/P Pulse Ox O2 Delivery O2 Flow Rate FiO2 04/25/17 04:51 98.1 69 19 103/57 99 04/23/17 01:02 Room Air Intake and Output 04/24/17 04/24/17 04/25/17 15:00 23:00 07:00 Intake Total 900 ml Balance 900 ml Exam Constitutional: alert, oriented, well developed Psych: anxiety Musculoskeletal: other (Range of motion is grossly intact shorter and flexion extension internal/external rotation AB and adduction with pain with AB and adduction and flexion extension and rotation of her left shoulder in flexion extension pain is graded as 5/10 above movement motor is intact in bilateral upper extremities 5/5 strength intact she has a negative pain in the glenohumeral joint no point tenderness left of her shoulder without tenderness at left or right ulnar tuberosity negative Tinel sign negative loss of sensation or motor function left hand with flexion extension) Results Result Diagram: 04/25/17 0537 04/25/17 0537 Results 24 hrs Laboratory Tests Test 04/25/17 00:01 04/25/17 05:37 Urine Color YELLOW Urine Clarity CLEAR Urine pH 7.0 Urine Specific [place] 1.015 Urine Ketones NEGATIVE Urine Nitrite NEGATIVE Urine Bilirubin NEGATIVE Urine Urobilinogen NEGATIVE Urine Leukocyte Esterase NEGATIVE Urine Microscopic RBC 2 Urine Microscopic WBC 3 Urine Squamous Epithelial Cells FEW Urine Hemoglobin NEGATIVE Urine Glucose NEGATIVE Urine Total Protein NEGATIVE White Blood Count 9.5 Red Blood Count 3.89 L Hemoglobin 11.6 L Hematocrit 34.5 L Mean Corpuscular Volume 88.7 Mean Corpuscular Hemoglobin 29.8 Mean Corpuscular Hemoglobin Concent 33.6 Red Cell Distribution Width 13.3 Platelet Count 334 Mean Platelet Volume 9.5 Neutrophils % 59.3 Lymphocytes % 25.8 Monocytes % 8.3 Eosinophils % 5.4 Basophils % 0.7 Nucleated Red Blood Cells % 0.0 Neutrophils # 5.6 Lymphocytes # 2.5 Monocytes # 0.8 Eosinophils # 0.5 Basophils # 0.1 Nucleated Red Blood Cells # 0.0 Prothrombin Time 19.1 H Prothrombin Time Ratio 1.5 INR International Normalized Ratio 1.57 Sodium Level 140 Potassium Level 4.2 Chloride Level 104 Carbon Dioxide Level 29 Anion Gap 11 Blood Urea Nitrogen 9 Creatinine 0.63 Glucose Level 94 Calcium Level 9.2 Phosphorus Level 4.4 Magnesium Level 1.9 Albumin 3.4 Medications Medications Current Medications Metoprolol Succinate (Toprol Xl) 25 mg BID PO Last administered on 04/23/17 09:43; Admin Dose 25 MG; Start 04/23/17 at 09:00 Zolpidem Tartrate (Ambien) 10 mg QHS PRN PO INSOMNIA Last administered on 21:02; Admin Dose 10 MG; Start 04/23/17 at 02:00 Ondansetron HCl (Zofran Tab) 4 mg Q6H PRN PO NAUSEA AND/OR VOMITING; Start at 02:00 Nitroglycerin (Nitroglycerin (Sl Tab) 0.4 Mg) 1 tab Q5M PRN SL CHEST PAIN; Start 04/23/17 at 02:00 Acetaminophen (Tylenol Tab) 650 mg Q6H PRN PO PAIN LEVEL 1-3 OR FEVER; Start 04/23/17 at 02:00 Docusate Sodium (Colace) 100 mg Q12H PRN PO CONSTIPATION; Start 04/23/17 at 02 :00 Bisacodyl (Dulcolax) 5 mg DAILY PRN PO CONSTIPATION; Start 04/23/17 at 02:00 Warfarin Sodium (Coumadin) 6 mg DAILY@17 PO Last administered on 04/24/17 18: 03; Admin Dose 6 MG; Start 04/23/17 at 17:00 Enoxaparin Sodium (Lovenox) 65 mg Q12 SC Last administered on 04/24/17 21:01; Admin Dose 65 MG; Start 04/23/17 at 21:00 Al Hydrox/Mg Hydrox/Simethicone (Mag-Al Plus) 30 ml Q6H PRN PO GASTROINTESTINAL UPSET Last administered on 04/24/17 02:17; Admin Dose 30 ML; Start 04/24/17 at 01:30 Oxycodone/ Acetaminophen (Percocet (5/ 325)) 1 tab Q4H PRN PO PAIN LEVEL 4-6; Start 04/24/17 at 11:30 Morphine Sulfate (morphine) 2 mg Q3 PRN IV PAIN LEVEL 7-10 Last administered on 04/25/17 03:04; Admin Dose 2 MG; Start 04/24/17 at 12:00 Oxycodone/ Acetaminophen (Percocet (5/ 325)) 2 tab Q4H PRN PO PAIN -03/03 Last administered on 04/24/17t 23:36; Admin Dose 2 TAB; Start 04/24/17 at 12:00 DC DAVIS Apr 25, 2017 07:57
[2017-04-25] MEDS: IBUPROFEN 600 MG TAB PO SCH ×3 (08:35→20:14)
[2017-04-25] MEDS: METOPROLOL (XL) 25 MG TAB PO SCH ×2 (08:38→20:15)
[2017-04-25] MEDS: ENOXAPARIN 80 MG/0.8 ML SYG SC SCH ×2 (08:45→20:22)
--- NOTE | 2017-04-25 10:45 | PN ---
Date/Time of Note Date/Time of Note DATE: 04/25/17 TIME: 10:44 Assessment/Plan Lines/Catheters IV Catheter Type (from Nrsg): Saline Lock Assessment/Plan Chief Complaint/Hosp Course IMPRESSION: Status post mitral valve replacement recently at [facility]. Mitral valve replacement, patient's pacing wires have been retained. At this time, would recommend to leave the wires intact unless there are signs of sepsis, which at that time, the patient probably has to be transferred to [employer] back to the Dr Magana surgeon. Discussed with the patient. All questions answered. Problems: Subjective 24 Hr Interval Summary Constitutional: improved Pain Control: mild Exam/Review of Systems Vital Signs Vitals Vital Signs Date Time Temp Pulse Resp B/P Pulse Ox O2 Delivery O2 Flow Rate FiO2 04/25/17 08:22 98.0 72 17 102/59 97 04/23/17 01:02 Room Air Intake and Output 04/24/17 04/24/17 04/25/17 14:59 22:59 06:59 Intake Total 900 ml 500 ml Balance 900 ml 500 ml Exam ENMT: mucosa pink and moist, nl external ears & nose, nl lips & teeth, nl nasal mucosa & septum Neck: non-tender, supple Respiratory: clear to auscultation, normal air movement Cardiovascular: nl pulses, regular rate and rhythm Gastrointestinal: nl liver, spleen, non-tender, soft Results Result Diagram: 04/25/17 0537 04/25/17 0537 SHOAIB QUIJANO MD Apr 25, 2017 10:45
--- NOTE | 2017-04-25 12:26 | PN ---
Date/Time of Note Date/Time of Note DATE: 04/25/17 TIME: 12:26 Assessment/Plan VTE Prophylaxis VTE Prophylaxis Intervention: LMWH Lines/Catheters IV Catheter Type (from Nrsg): Saline Lock Assessment/Plan Assessment/Plan 1. Chest pain, most likely muscular - Patient has pain with movement of LUE that radiates from above left breast to shoulder area. Believe may be a muscle strain and will try Flexeril for relief. Warm heating pad also offered. Deferred MRI for now given has no limited ROM from left shoulder and unsure if it will affect her mechanical valve. - Cardiology on board and recommendations appreciated. - CT surgery on board and after discussion does not believe retained wires are causing this pain. Advised patient to return to original surgeon or ask her PCP for referral to another CT surgeon for second opinion. - ECHO shows EF 55% and mechanical MV sitting in proper position - Patient had original surgery Mar 28, 2017 at [facility] by Dr. Jordan. - Pain management consulted and appreciate recommendations 2. Leukocytosis- normalized - Continue monitoring - blood cultures obtained and are negative 3. Mechanical mitral valve - Patient on Coumadin and INR subtherapeutic. Goal 2.5 to 3.5. Will continue on lovenox/coumadin bridge per cardiology - Will give Coumadin 10mg tonight - CM consult placed to make sure Lovenox will be covered by insurance 4. Elevated TSH - will advise to have repeated once acute issue resolves 5. Disposition - Arranging for Lovenox injections and home health - Try on Flexeril today - d/c in am if remains stable Subjective 24 Hr Interval Summary Free Text/Dictation Patient very anxious person and all questions answered. Appears to be more comfortable but still frustrated with situation. Explained she can have her PCP refer her for a second opinion and the discomfort is probably muscular related. No acute overnight events. Exam/Review of Systems Vital Signs Vitals Vital Signs Date Time Temp Pulse Resp B/P Pulse Ox O2 Delivery O2 Flow Rate FiO2 04/25/17 12:07 62 04/25/17 11:50 98.4 17 102/58 99 04/23/17 01:02 Room Air Intake and Output 04/24/17 04/24/17 04/25/17 15:00 23:00 07:00 Intake Total 900 ml 500 ml Balance 900 ml 500 ml Exam General: Patient is lying in bed, appears more comfortable but anxious, awake and alert Neck: Supple with full range of motion Chest: Tender to deep palpation at the level of the left anterior chest wall above clavicle and with movement of LUE, midline incision healing well Lungs: Clear to auscultation bilaterally no crackles rales or wheezing Heart: Regular rate rhythm, click from mechanical valve appreciated Abdomen: Soft , bowel sounds are present. No guarding no rebound tenderness , Extremities: Normal to inspection, no edema no cyanosis Neurologic: Normal mental status, speech normal, cranial nerves II through XII are intact, motor and sensory are intact, no focal weakness Results Result Diagram: 04/25/1737 04/25/17536 Results 24 hrs Laboratory Tests Test 04/25/17 00:01 04/25/17 05:37 Urine Color YELLOW Urine Clarity CLEAR Urine pH 7.0 Urine Specific [place] 1.015 Urine Ketones NEGATIVE Urine Nitrite NEGATIVE Urine Bilirubin NEGATIVE Urine Urobilinogen NEGATIVE Urine Leukocyte Esterase NEGATIVE Urine Microscopic RBC 2 Urine Microscopic WBC 3 Urine Squamous Epithelial Cells FEW Urine Hemoglobin NEGATIVE Urine Glucose NEGATIVE Urine Total Protein NEGATIVE White Blood Count 9.5 Red Blood Count 3.89 L Hemoglobin 11.6 L Hematocrit 34.5 L Mean Corpuscular Volume 88.7 Mean Corpuscular Hemoglobin 29.8 Mean Corpuscular Hemoglobin Concent 33.6 Red Cell Distribution Width 13.3 Platelet Count 334 Mean Platelet Volume 9.5 Neutrophils % 59.3 Lymphocytes % 25.8 Monocytes % 8.3 Eosinophils % 5.4 Basophils % 0.7 Nucleated Red Blood Cells % 0.0 Neutrophils # 5.6 Lymphocytes # 2.5 Monocytes # 0.8 Eosinophils # 0.5 Basophils # 0.1 Nucleated Red Blood Cells # 0.0 Prothrombin Time 19.1 H Prothrombin Time Ratio 1.5 INR International Normalized Ratio 1.57 Sodium Level 140 Potassium Level 4.2 Chloride Level 104 Carbon Dioxide Level 29 Anion Gap 11 Blood Urea Nitrogen 9 Creatinine 0.63 Glucose Level 94 Calcium Level 9.2 Phosphorus Level 4.4 Magnesium Level 1.9 Albumin 3.4 Medications Medications Current Medications Metoprolol Succinate (Toprol Xl) 25 mg BID PO Last administered on 04/25/17 08 :38; Admin Dose 25 MG; Start 04/23/17 at 09:00 Zolpidem Tartrate (Ambien) 10 mg QHS PRN PO INSOMNIA Last administered on 21:02; Admin Dose 10 MG; Start 04/23/17 at 02:00 Ondansetron HCl (Zofran Tab) 4 mg Q6H PRN PO NAUSEA AND/OR VOMITING; Start at 02:00 Nitroglycerin (Nitroglycerin (Sl Tab) 0.4 Mg) 1 tab Q5M PRN SL CHEST PAIN; Start 04/23/17 at 02:00 Acetaminophen (Tylenol Tab) 650 mg Q6H PRN PO PAIN LEVEL 1-3 OR FEVER; Start 04/23/17 at 02:00 Docusate Sodium (Colace) 100 mg Q12H PRN PO CONSTIPATION; Start 04/23/17 at 02 :00 Bisacodyl (Dulcolax) 5 mg DAILY PRN PO CONSTIPATION; Start 04/23/17 at 02:00 Warfarin Sodium (Coumadin) 6 mg DAILY@17 PO Last administered on 04/24/17 18: 03; Admin Dose 6 MG; Start 04/23/17 at 17:00 Enoxaparin Sodium (Lovenox) 65 mg Q12 SC Last administered on 04/25/17 08:45; Admin Dose 65 MG; Start 04/23/17 at 21:00 Al Hydrox/Mg Hydrox/Simethicone (Mag-Al Plus) 30 ml Q6H PRN PO GASTROINTESTINAL UPSET Last administered on 04/24/17 02:17; Admin Dose 30 ML; Start 04/24/17 at 01:30 Oxycodone/ Acetaminophen (Percocet (5/ 325)) 1 tab Q4H PRN PO PAIN LEVEL 4-6 Last administered on 04/25/17 07:52; Admin Dose 1 TAB; Start 04/24/17 at 11:30 Oxycodone/ Acetaminophen (Percocet (5/ 325)) 2 tab Q4H PRN PO PAIN 7-10/10 Last administered on 04/25/17 12:00; Admin Dose 2 TAB; Start 04/24/17 at 12:00 Ibuprofen (Motrin) 600 mg Q6H PO Last administered on 04/25/17 08:35; Admin Dose 600 MG; Start 04/25/17 at 08:00 Pantoprazole (Protonix Tab) 40 mg DAILY@06 PO ; Start 04/26/17 at 06:00 MALVIN PERDUE MD Apr 25, 2017 12:26
[2017-04-25] MEDS ORDERED: ENOX80DI10 SC (13:07)
[2017-04-25] MEDS: CYCLOBENZAPRINE 10 MG TAB PO SCH ×2 (14:17→20:14)
[2017-04-25] MEDS ORDERED: WARFARIN 2 MG TAB PO ONE (17:00)
[2017-04-25] MEDS: WARFARIN 3 MG TAB PO SCH (17:08)
[2017-04-26] VITALS (14 sets, daily range): BP systolic 82–103; BP diastolic 48–57; PULSE 54–71; RESP 16–20
[2017-04-26] MEDS: IBUPROFEN 600 MG TAB PO SCH ×2 (02:09→08:35)
[2017-04-26] MEDS: ALBUTEROL HFA 8 GM INHALER INH SCH ×4 (02:10→20:07)
[2017-04-26] MEDS: PANTOPRAZOLE (EC) 40 MG TAB PO SCH (05:58)
[2017-04-26] MEDS: OXYCODONE/ACETAMINOPHEN (5/325) TAB PO PRN ×3 (06:02→20:47)
[2017-04-26 06:13] LABS: BASOPHIL # 0.1 10^3/ul (0.0-0.1); BASOPHILS % 0.7 % (0.0-2.0); EOSINOPHILS # 0.5 10^3/ul (0.0-0.5); EOSINOPHILS % 6.8 % (0.0-7.0); HEMATOCRIT 33.8 % (37.0-47.0); HEMOGLOBIN 11.3 g/dl (12.0-16.0); LYMPHOCYTES # 2.2 10^3/ul (0.8-2.9); LYMPHOCYTES % 32.6 % (15.0-51.0); MEAN CORPUSCULAR HEMOGLOBIN 29.5 pg (29.0-33.0); MEAN CORPUSCULAR HGB CONC 33.4 g/dl (32.0-37.0); MEAN CORPUSCULAR VOLUME 88.3 fl (82.0-101.0); MEAN PLATELET VOLUME 9.5 fl (7.4-10.4); MONOCYTE # 0.7 10^3/ul (0.3-0.9); MONOCYTES % 10.3 % (0.0-11.0); NEUTROPHIL # 3.3 10^3/ul (1.6-7.5); NEUTROPHILS % 49.2 % (39.0-77.0); PLATELET COUNT 314 10^3/UL (140-415); RED BLOOD COUNT 3.83 10^6/ul (4.20-5.40); RED CELL DISTRIBUTION WIDTH 13.2 % (11.5-14.5); WHITE BLOOD COUNT 6.8 10^3/ul (4.8-10.8)
[2017-04-26 06:28] LABS: INR 1.78; PROTIME 21.1 Sec (11.9-14.9); PT RATIO 1.6
[2017-04-26 06:56] LABS: ALBUMIN 3.4 g/dl (3.3-4.9); CALCIUM 8.8 mg/dl (8.4-10.2); CREATININE 0.71 mg/dl (0.44-1.00); POTASSIUM 4.2 mmol/L (3.5-5.1)
[2017-04-26] MEDS: CYCLOBENZAPRINE 10 MG TAB PO SCH ×3 (08:36→20:06)
[2017-04-26] MEDS: ENOXAPARIN 80 MG/0.8 ML SYG SC SCH ×2 (08:43→20:11)
[2017-04-26] MEDS: METOPROLOL (XL) 25 MG TAB PO SCH ×2 (09:00→20:07)
--- NOTE | 2017-04-26 13:04 | PN ---
Date/Time of Note Date/Time of Note DATE: 04/26/17 TIME: 12:56 Assessment/Plan VTE Prophylaxis VTE Prophylaxis Intervention: SCD's Lines/Catheters IV Catheter Type (from Nrsg): Saline Lock Assessment/Plan Assessment/Plan 1. Chest pain, most likely muscular strain - Patient states she feels as if pain has improved significantly. Started on Flexeril yesterday and seems to be helping control her symptoms. Is causing increase in sedation but did not want to change medication and plans to use medication at night or when not going to be driving. - Will start on Naproxen BID and offered heating pad as well. - Cardiology on board and recommendations appreciated. - CT surgery on board and after discussion does not believe retained wires are causing this pain. - ECHO shows EF 55% and mechanical MV sitting in proper position - Patient had original surgery Mar 28, 2017 at [facility]. Spoke with patients original CT surgeon who advises the patient not be discharged until her INR is at least 2 due to increased risk with mechanical MV (cell , Dr. Fabiano Moura) - Pain management consulted and appreciate recommendations 2. Leukocytosis- normalized - Continue monitoring - blood cultures obtained and are negative 3. Mechanical mitral valve - Patient on Coumadin and INR subtherapeutic. Goal 2.5 to 3.5. Will continue on lovenox/coumadin bridge per cardiology - Will give Coumadin 10mg again tonight. Usually on Coumadin 4mg prior to admission - CM consult placed to make sure Lovenox will be covered by insurance if INR not therapeutic prior to discharge 4. Elevated TSH - will advise to have repeated once acute issue resolves 5. Disposition - INR will need to be 2 prior to discharge home - CM working on to assist with Lovenox shots - Continue on Flexeril and Naproxen for discomfort Subjective 24 Hr Interval Summary Free Text/Dictation Patient states pain has improved and now 3/10 after started on the muscle relaxant. Does feeling increase in fatigue and advised most likely medication side effect. Offered to change medications but she would rather just take at night after discharge. Exam/Review of Systems Vital Signs Vitals Vital Signs Date Time Temp Pulse Resp B/P Pulse Ox O2 Delivery O2 Flow Rate FiO2 04/26/17 12:22 65 04/26/17 12:10 97.9 17 88/52 04/26/17 07:43 98 04/23/17 01:02 Room Air Intake and Output 04/25/17 04/25/17 04/26/17 14:59 22:59 06:59 Intake Total 950 ml 350 ml Balance 950 ml 350 ml Exam General: Patient is lying in bed, in no acute distress, more comfortably. Neck: Supple with full range of motion Chest: mild tenderness to deep palpation at the level of the left anterior chest wall above clavicle and with movement of LUE, midline incision healed Lungs: Clear to auscultation bilaterally no crackles rales or wheezing Heart: Regular rate rhythm, click from mechanical valve appreciated Abdomen: Soft , bowel sounds are present. No guarding no rebound tenderness , Extremities: Normal to inspection, no edema no cyanosis Neurologic: Normal mental status, speech normal, cranial nerves II through XII are intact, motor and sensory are intact, no focal weakness Results Result Diagram: 04/26/17 0526 04/26/17 0550 Results 24 hrs Laboratory Tests Test 04/26/17 05:26 04/26/17 05:44 04/26/17 05:50 White Blood Count 6.8 # Red Blood Count 3.83 L Hemoglobin 11.3 L Hematocrit 33.8 L Mean Corpuscular Volume 88.3 Mean Corpuscular Hemoglobin 29.5 Mean Corpuscular Hemoglobin Concent 33.4 Red Cell Distribution Width 13.2 Platelet Count 314 Mean Platelet Volume 9.5 Neutrophils % 49.2 Lymphocytes % 32.6 Monocytes % 10.3 Eosinophils % 6.8 Basophils % 0.7 Nucleated Red Blood Cells % 0.0 Neutrophils # 3.3 Lymphocytes # 2.2 Monocytes # 0.7 Eosinophils # 0.5 Basophils # 0.1 Nucleated Red Blood Cells # 0.0 Prothrombin Time 21.1 H Prothrombin Time Ratio 1.6 INR International Normalized Ratio 1.78 Sodium Level 139 Potassium Level 4.2 Chloride Level 104 Carbon Dioxide Level 27 Anion Gap 12 Blood Urea Nitrogen 10 Creatinine 0.71 Glucose Level 89 Calcium Level 8.8 Phosphorus Level 4.0 Magnesium Level 2.0 Albumin 3.4 Medications Medications Current Medications Metoprolol Succinate (Toprol Xl) 25 mg BID PO Last administered on 04/25/17t 08 :38; Admin Dose 25 MG; Start 04/23/17 at 09:00 Zolpidem Tartrate (Ambien) 10 mg QHS PRN PO INSOMNIA Last administered on 21:02; Admin Dose 10 MG; Start 04/23/17 at 02:00 Ondansetron HCl (Zofran Tab) 4 mg Q6H PRN PO NAUSEA AND/OR VOMITING; Start at 02:00 Nitroglycerin (Nitroglycerin (Sl Tab) 0.4 Mg) 1 tab Q5M PRN SL CHEST PAIN; Start 04/23/17 at 02:00 Acetaminophen (Tylenol Tab) 650 mg Q6H PRN PO PAIN LEVEL 1-3 OR FEVER; Start 04/23/17 at 02:00 Docusate Sodium (Colace) 100 mg Q12H PRN PO CONSTIPATION; Start 04/23/17 at 02 :00 Bisacodyl (Dulcolax) 5 mg DAILY PRN PO CONSTIPATION; Start 04/23/17 at 02:00 Warfarin Sodium (Coumadin) 6 mg DAILY@17 PO Last administered on 04/25/17 17: 08; Admin Dose 6 MG; Start 04/23/17 at 17:00 Enoxaparin Sodium (Lovenox) 65 mg Q12 SC Last administered on 04/26/17 08:43; Admin Dose 65 MG; Start 04/23/17 at 21:00 Al Hydrox/Mg Hydrox/Simethicone (Mag-Al Plus) 30 ml Q6H PRN PO GASTROINTESTINAL UPSET Last administered on 04/24/17 02:17; Admin Dose 30 ML; Start 04/24/17 at 01:30 Oxycodone/ Acetaminophen (Percocet (5/ 325)) 1 tab Q4H PRN PO PAIN LEVEL 4-6 Last administered on 04/25/17 07:52; Admin Dose 1 TAB; Start 04/24/17 at 11:30 Oxycodone/ Acetaminophen (Percocet (5/ 325)) 2 tab Q4H PRN PO PAIN 7-10/10 Last administered on 04/26/17 06:02; Admin Dose 2 TAB; Start 04/24/17 at 12:00 Pantoprazole (Protonix Tab) 40 mg DAILY@06 PO Last administered on 04/26/17 05 :58; Admin Dose 40 MG; Start 04/26/17 at 06:00 Cyclobenzaprine HCl (Flexeril) 10 mg TID PO Last administered on 04/26/17t 08: 36; Admin Dose 10 MG; Start 04/25/17 at 13:00 Naproxen (Naprosyn) 500 mg BID PO ; Start 04/26/17 at 13:00 MALVIN PERDUE MD Apr 26, 2017 13:04
[2017-04-26] MEDS: NAPROXEN 500 MG TAB PO SCH ×2 (16:54→20:06)
[2017-04-26] MEDS: WARFARIN 3 MG TAB PO SCH (16:55)
[2017-04-26] MEDS ORDERED: WARFARIN 2 MG TAB PO ONE (17:00)
[2017-04-26] MEDS: ZOLPIDEM 5 MG TAB PO PRN (20:46)
[2017-04-27] VITALS (12 sets, daily range): BP systolic 88–109; BP diastolic 50–61; PULSE 57–69; RESP 16–20
[2017-04-27] MEDS: ALBUTEROL HFA 8 GM INHALER INH SCH ×4 (01:47→20:00)
[2017-04-27] MEDS: OXYCODONE/ACETAMINOPHEN (5/325) TAB PO PRN ×5 (01:58→23:44)
[2017-04-27] MEDS: PANTOPRAZOLE (EC) 40 MG TAB PO SCH (05:22)
[2017-04-27] MEDS: CYCLOBENZAPRINE 10 MG TAB PO SCH ×3 (08:13→20:15)
[2017-04-27] MEDS: NAPROXEN 500 MG TAB PO SCH ×2 (08:13→20:15)
[2017-04-27] MEDS: ENOXAPARIN 80 MG/0.8 ML SYG SC SCH ×2 (08:18→20:20)
[2017-04-27] MEDS: METOPROLOL (XL) 25 MG TAB PO SCH ×2 (09:00→20:15)
[2017-04-27 09:09] LABS: INR 1.88; PT RATIO 1.7
--- NOTE | 2017-04-27 15:25 | CONS ---
Date/Time of Note Date/Time of Note DATE: 04/27/17 TIME: 15:22 Assessment/Plan Assessment/Plan Additional Assessment/Plan Chest wall pain, improved Mitral valve disease status post mechanical mitral valve replacement 03/28/2017 Subtherapeutic INR Retained pacer wire -Patient currently on Coumadin 6 mg daily and bridging with Lovenox until INR is therapeutic. Seen by CT surgery. Consultation Date/Type/Reason Admit Date/Time Apr 24, 2017 at 11:21 Initial Consult Date Type of Consultation: cv 24 HR Interval Summary Free Text/Dictation Patient feeling better. Denies dizziness or shortness of breath Exam/Review of Systems Vital Signs Vitals Vital Signs Date Time Temp Pulse Resp B/P Pulse Ox O2 Delivery O2 Flow Rate FiO2 04/27/17 12:00 67 04/27/17 11:43 98.3 17 105/55 100 Intake and Output 04/26/17 04/26/17 04/27/17 15:00 23:00 07:00 Intake Total 800 ml Balance 800 ml Exam No apparent distress Constitutional: alert, oriented Head: normocephalic Respiratory: other (Coarse breath sounds bilaterally, no wheezing) Cardiovascular: other (Mechanical click), regular rate and rhythm Gastrointestinal: bowel sounds, non-tender, soft Extremities: other (No significant edema) Results Result Diagram: 04/26/17 0526 04/26/17 0550 Results 24 hrs Laboratory Tests Test 04/27/17 07:19 Prothrombin Time 22.0 H Prothrombin Time Ratio 1.7 INR International Normalized Ratio 1.88 Medications Medications Current Medications Metoprolol Succinate (Toprol Xl) 25 mg BID PO Last administered on 04/25/17 08 :38; Admin Dose 25 MG; Start 04/23/17 at 09:00 Zolpidem Tartrate (Ambien) 10 mg QHS PRN PO INSOMNIA Last administered on 20:46; Admin Dose 10 MG; Start 04/23/17 at 02:00 Ondansetron HCl (Zofran Tab) 4 mg Q6H PRN PO NAUSEA AND/OR VOMITING; Start at 02:00 Nitroglycerin (Nitroglycerin (Sl Tab) 0.4 Mg) 1 tab Q5M PRN SL CHEST PAIN; Start 04/23/17 at 02:00 Acetaminophen (Tylenol Tab) 650 mg Q6H PRN PO PAIN LEVEL 1-3 OR FEVER; Start 04/23/17 at 02:00 Docusate Sodium (Colace) 100 mg Q12H PRN PO CONSTIPATION; Start 04/23/17 at 02 :00 Bisacodyl (Dulcolax) 5 mg DAILY PRN PO CONSTIPATION; Start 04/23/17 at 02:00 Warfarin Sodium (Coumadin) 6 mg DAILY@17 PO Last administered on 04/26/17 16: 55; Admin Dose 6 MG; Start 04/23/17 at 17:00 Enoxaparin Sodium (Lovenox) 65 mg Q12 SC Last administered on 04/27/17 08:18; Admin Dose 65 MG; Start 04/23/17 at 21:00 Al Hydrox/Mg Hydrox/Simethicone (Mag-Al Plus) 30 ml Q6H PRN PO GASTROINTESTINAL UPSET Last administered on 04/24/17 02:17; Admin Dose 30 ML; Start 04/24/17 at 01:30 Oxycodone/ Acetaminophen (Percocet (5/ 325)) 1 tab Q4H PRN PO PAIN LEVEL 4-6 Last administered on 04/27/17 08:13; Admin Dose 1 TAB; Start 04/24/17 at 11:30 Oxycodone/ Acetaminophen (Percocet (5/ 325)) 2 tab Q4H PRN PO PAIN 7-10/10 Last administered on 04/27/17 11:52; Admin Dose 2 TAB; Start 04/24/17 at 12:00 Pantoprazole (Protonix Tab) 40 mg DAILY@06 PO Last administered on 04/27/17 05 :22; Admin Dose 40 MG; Start 04/26/17 at 06:00 Cyclobenzaprine HCl (Flexeril) 10 mg TID PO Last administered on 04/27/17 12: 20; Admin Dose 10 MG; Start 04/25/17 at 13:00 Naproxen (Naprosyn) 500 mg BID PO Last administered on 04/27/17 08:13; Admin Dose 500 MG; Start 04/26/17 at 13:00 Fabiano Alvarado DO Apr 27, 2017 15:25
--- NOTE | 2017-04-27 15:30 | PN ---
Date/Time of Note Date/Time of Note DATE: 04/27/17 TIME: 15:29 Assessment/Plan VTE Prophylaxis VTE Prophylaxis Intervention: ambulation, SCD's Lines/Catheters IV Catheter Type (from Nrsg): Saline Lock Assessment/Plan Chief Complaint/Hosp Course s: 12.4 frustrated she is still here o: Physical exam General: Patient is laying in bed and answers questions appropriately Mentation: Patient is alert and oriented 4, Head: Normocephalic atraumatic Eyes: EOMI, pupils reactive to light Neck: Supple, nontender, midline Respiratory: Clear to auscultation bilaterally Cardiovascular: regular rate, no obvious murmurs Gastrointestinal: non-tender to palpation, bowel sounds heard. Neurological: Moves all extremities spontaneously Skin: No new skin lesions Assessment/Plan 1. Chest pain, most likely muscular strain - Patient states she feels as if pain has improved significantly. Started on Flexeril and seems to be helping control her symptoms. Is causing increase in sedation but did not want to change medication and plans to use medication at night or when not going to be driving. - Will start on Naproxen BID and offered heating pad as well. - Cardiology on board and recommendations appreciated. - CT surgery on board and after discussion does not believe retained wires are causing this pain. - ECHO shows EF 55% and mechanical MV sitting in proper position - Patient had original surgery Mar 28, [address] [facility]. Spoke with patients original CT surgeon who advises the patient not be discharged until her INR is at least 2 due to increased risk with mechanical MV (cell , Dr. Fabiano Moura) - Pain management consulted and appreciate recommendations 2. Leukocytosis- normalized - Continue monitoring - blood cultures obtained and are negative 3. Mechanical mitral valve - Patient on Coumadin and INR subtherapeutic. Goal 2.5 to 3.5. Will continue on lovenox/coumadin bridge per cardiology - Will give Coumadin 10mg again tonight. Usually on Coumadin 4mg prior to admission - CM consult placed to make sure Lovenox will be covered by insurance if INR not therapeutic prior to discharge 4. Elevated TSH - will advise to have repeated once acute issue resolves 5. Disposition - INR will need to be 2 prior to discharge home - CM working on to assist with Lovenox shots - Continue on Flexeril and Naproxen for discomfort Problems: Exam/Review of Systems Vital Signs Vitals Vital Signs Date Time Temp Pulse Resp B/P Pulse Ox O2 Delivery O2 Flow Rate FiO2 04/27/17 12:00 67 04/27/17 11:43 98.3 17 105/55 100 Intake and Output 04/26/17 04/26/17 04/27/17 15:00 23:00 07:00 Intake Total 800 ml Balance 800 ml Results Result Diagram: 04/26/17 0526 04/26/17 0550 Results 24 hrs Laboratory Tests Test 04/27/17 07:19 Prothrombin Time 22.0 H Prothrombin Time Ratio 1.7 INR International Normalized Ratio 1.88 Medications Medications Current Medications Metoprolol Succinate (Toprol Xl) 25 mg BID PO Last administered on 04/25/17 08 :38; Admin Dose 25 MG; Start 04/23/17 at 09:00 Zolpidem Tartrate (Ambien) 10 mg QHS PRN PO INSOMNIA Last administered on 20:46; Admin Dose 10 MG; Start 04/23/17 at 02:00 Ondansetron HCl (Zofran Tab) 4 mg Q6H PRN PO NAUSEA AND/OR VOMITING; Start at 02:00 Nitroglycerin (Nitroglycerin (Sl Tab) 0.4 Mg) 1 tab Q5M PRN SL CHEST PAIN; Start 04/23/17 at 02:00 Acetaminophen (Tylenol Tab) 650 mg Q6H PRN PO PAIN LEVEL 1-3 OR FEVER; Start 04/23/17 at 02:00 Docusate Sodium (Colace) 100 mg Q12H PRN PO CONSTIPATION; Start 04/23/17 at 02 :00 Bisacodyl (Dulcolax) 5 mg DAILY PRN PO CONSTIPATION; Start 04/23/17 at 02:00 Warfarin Sodium (Coumadin) 6 mg DAILY@17 PO Last administered on 04/26/17 16: 55; Admin Dose 6 MG; Start 04/23/17 at 17:00 Enoxaparin Sodium (Lovenox) 65 mg Q12 SC Last administered on 04/27/17 08:18; Admin Dose 65 MG; Start 04/23/17 at 21:00 Al Hydrox/Mg Hydrox/Simethicone (Mag-Al Plus) 30 ml Q6H PRN PO GASTROINTESTINAL UPSET Last administered on 04/24/17 02:17; Admin Dose 30 ML; Start 04/24/17 at 01:30 Oxycodone/ Acetaminophen (Percocet (5/ 325)) 1 tab Q4H PRN PO PAIN LEVEL 4-6 Last administered on 04/27/17 08:13; Admin Dose 1 TAB; Start 04/24/17 at 11:30 Oxycodone/ Acetaminophen (Percocet (5/ 325)) 2 tab Q4H PRN PO PAIN 7-1010 Last administered on 04/27/17 11:52; Admin Dose 2 TAB; Start 04/24/17 at 12:00 Pantoprazole (Protonix Tab) 40 mg DAILY@06 PO Last administered on 04/27/17 05 :22; Admin Dose 40 MG; Start 04/26/17 at 06:00 Cyclobenzaprine HCl (Flexeril) 10 mg TID PO Last administered on 04/27/17 12: 20; Admin Dose 10 MG; Start 04/25/17 at 13:00 Naproxen (Naprosyn) 500 mg BID PO Last administered on 04/27/17 08:13; Admin Dose 500 MG; Start 04/26/17 at 13:00 ALEKSEY GENAO Apr 27, 2017 15:30
[2017-04-27] MEDS: WARFARIN 3 MG TAB PO SCH (17:35)
[2017-04-27] MEDS: ZOLPIDEM 5 MG TAB PO PRN (20:27)
[2017-04-28] VITALS (13 sets, daily range): BP systolic 91–115; BP diastolic 46–59; PULSE 55–72; RESP 16–19
[2017-04-28] MEDS: ALBUTEROL HFA 8 GM INHALER INH SCH ×4 (02:13→20:00)
[2017-04-28] MEDS: PANTOPRAZOLE (EC) 40 MG TAB PO SCH (05:45)
[2017-04-28] MEDS: OXYCODONE/ACETAMINOPHEN (5/325) TAB PO PRN ×3 (07:38→17:11)
[2017-04-28 08:29] LABS: BASOPHIL # 0.1 10^3/ul (0.0-0.1); BASOPHILS % 0.7 % (0.0-2.0); EOSINOPHILS # 0.6 10^3/ul (0.0-0.5); EOSINOPHILS % 8.3 % (0.0-7.0); HEMATOCRIT 35.4 % (37.0-47.0); LYMPHOCYTES # 2.4 10^3/ul (0.8-2.9); MEAN CORPUSCULAR HEMOGLOBIN 29.6 pg (29.0-33.0); MEAN CORPUSCULAR HGB CONC 33.9 g/dl (32.0-37.0); MEAN CORPUSCULAR VOLUME 87.2 fl (82.0-101.0); MEAN PLATELET VOLUME 9.4 fl (7.4-10.4); MONOCYTE # 0.6 10^3/ul (0.3-0.9); MONOCYTES % 8.1 % (0.0-11.0); NEUTROPHIL # 3.8 10^3/ul (1.6-7.5); NEUTROPHILS % 50.6 % (39.0-77.0); PLATELET COUNT 325 10^3/UL (140-415); RED BLOOD COUNT 4.06 10^6/ul (4.20-5.40); RED CELL DISTRIBUTION WIDTH 12.8 % (11.5-14.5); WHITE BLOOD COUNT 7.5 10^3/ul (4.8-10.8)
[2017-04-28] MEDS: METOPROLOL (XL) 25 MG TAB PO SCH ×2 (09:00→20:45)
[2017-04-28 09:02] LABS: CALCIUM 9.3 mg/dl (8.4-10.2); CREATININE 0.65 mg/dl (0.44-1.00); MAGNESIUM 1.8 mg/dl (1.7-2.5); PHOSPHORUS 4.3 mg/dl (2.5-4.9); POTASSIUM 4.1 mmol/L (3.5-5.1)
[2017-04-28] MEDS: NAPROXEN 500 MG TAB PO SCH ×2 (09:36→20:45)
[2017-04-28] MEDS: CYCLOBENZAPRINE 10 MG TAB PO SCH ×3 (09:36→20:45)
[2017-04-28] MEDS: ENOXAPARIN 80 MG/0.8 ML SYG SC SCH ×2 (09:41→21:06)
--- NOTE | 2017-04-28 10:54 | CONS ---
Date/Time of Note Date/Time of Note DATE: 04/28/17 TIME: 10:53 Assessment/Plan Assessment/Plan Additional Assessment/Plan Chest wall pain, improved Mitral valve disease status post mechanical mitral valve replacement 03/28/2017 Subtherapeutic INR Retained pacer wire -Patient currently on Coumadin 6 mg daily and bridging with Lovenox until INR is therapeutic. INR for today still pending. Was seen by CT surgery. Consultation Date/Type/Reason Admit Date/Time Apr 24, 2017 at 11:21 Type of Consultation: cv 24 HR Interval Summary Free Text/Dictation Denies shortness of breath, palpitations, feeling better Exam/Review of Systems Vital Signs Vitals Vital Signs Date Time Temp Pulse Resp B/P Pulse Ox O2 Delivery O2 Flow Rate FiO2 04/28/17 08:00 55 04/28/17 07:51 98.2 18 91/55 99 Intake and Output 04/27/17 04/27/17 04/28/17 14:59 22:59 06:59 Intake Total 750 ml 300 ml Balance 750 ml 300 ml Exam No apparent distress Constitutional: alert, oriented Head: normocephalic Respiratory: clear to auscultation, normal air movement Cardiovascular: regular rate and rhythm, systolic murmur (Mechanical click) Gastrointestinal: bowel sounds, non-tender, soft Extremities: edema (Trivial) Results Result Diagram: 04/28/17 0755 04/28/17 0755 Results 24 hrs Laboratory Tests Test 04/28/17 07:55 White Blood Count 7.5 Red Blood Count 4.06 L Hemoglobin 12.0 Hematocrit 35.4 L Mean Corpuscular Volume 87.2 Mean Corpuscular Hemoglobin 29.6 Mean Corpuscular Hemoglobin Concent 33.9 Red Cell Distribution Width 12.8 Platelet Count 325 Mean Platelet Volume 9.4 Neutrophils % 50.6 Lymphocytes % 32.0 Monocytes % 8.1 Eosinophils % 8.3 H Basophils % 0.7 Nucleated Red Blood Cells % 0.0 Neutrophils # 3.8 Lymphocytes # 2.4 Monocytes # 0.6 Eosinophils # 0.6 H Basophils # 0.1 Nucleated Red Blood Cells # 0.0 Sodium Level 138 Potassium Level 4.1 Chloride Level 105 Carbon Dioxide Level 26 Anion Gap 11 Blood Urea Nitrogen 14 Creatinine 0.65 Glucose Level 85 Calcium Level 9.3 Phosphorus Level 4.3 Magnesium Level 1.8 Medications Medications Current Medications Metoprolol Succinate (Toprol Xl) 25 mg BID PO Last administered on 04/27/17 20 :15; Admin Dose 25 MG; Start 04/23/17 at 09:00 Zolpidem Tartrate (Ambien) 10 mg QHS PRN PO INSOMNIA Last administered on 20:27; Admin Dose 10 MG; Start 04/23/17 at 02:00 Ondansetron HCl (Zofran Tab) 4 mg Q6H PRN PO NAUSEA AND/OR VOMITING; Start at 02:00 Nitroglycerin (Nitroglycerin (Sl Tab) 0.4 Mg) 1 tab Q5M PRN SL CHEST PAIN; Start 04/23/17 at 02:00 Acetaminophen (Tylenol Tab) 650 mg Q6H PRN PO PAIN LEVEL 1-3 OR FEVER; Start 04/23/17 at 02:00 Docusate Sodium (Colace) 100 mg Q12H PRN PO CONSTIPATION; Start 04/23/17 at 02 :00 Bisacodyl (Dulcolax) 5 mg DAILY PRN PO CONSTIPATION; Start 04/23/17 at 02:00 Warfarin Sodium (Coumadin) 6 mg DAILY@17 PO Last administered on 04/27/17 17: 35; Admin Dose 6 MG; Start 04/23/17 at 17:00 Enoxaparin Sodium (Lovenox) 65 mg Q12 SC Last administered on 04/28/17 09:41; Admin Dose 65 MG; Start 04/23/17 at 21:00 Al Hydrox/Mg Hydrox/Simethicone (Mag-Al Plus) 30 ml Q6H PRN PO GASTROINTESTINAL UPSET Last administered on 04/24/17 02:17; Admin Dose 30 ML; Start 04/24/17 at 01:30 Oxycodone/ Acetaminophen (Percocet (5/ 325)) 1 tab Q4H PRN PO PAIN LEVEL 4-6 Last administered on 04/27/17 08:13; Admin Dose 1 TAB; Start 04/24/17 at 11:30 Oxycodone/ Acetaminophen (Percocet (5/ 325)) 2 tab Q4H PRN PO PAIN 7-10/10 Last administered on 04/28/17 07:38; Admin Dose 2 TAB; Start 12/1/17 at 12:00 Pantoprazole (Protonix Tab) 40 mg DAILY@06 PO Last administered on 04/28/17 05 :45; Admin Dose 40 MG; Start 04/26/17 at 06:00 Cyclobenzaprine HCl (Flexeril) 10 mg TID PO Last administered on 04/28/17 09: 36; Admin Dose 10 MG; Start 04/25/17 at 13:00 Naproxen (Naprosyn) 500 mg BID PO Last administered on 04/28/17 09:36; Admin Dose 500 MG; Start 04/26/17 at 13:00 Fabiano Alvarado DO Apr 28, 2017 10:54
[2017-04-28 11:43] LABS: INR 1.77; PT RATIO 1.6
[2017-04-28] MEDS ORDERED: WARFARIN 7.5 MG TAB PO SCH (13:30)
--- NOTE | 2017-04-28 15:40 | PN ---
Date/Time of Note Date/Time of Note DATE: 04/28/17 TIME: 15:39 Assessment/Plan VTE Prophylaxis VTE Prophylaxis Intervention: LMWH, SCD's Lines/Catheters IV Catheter Type (from Nrsg): Saline Lock Urinary Cath still in place: No Assessment/Plan Chief Complaint/Hosp Course s: 12.4 frustrated she is still here 12.5 still frustrated she is still admitted o: Physical exam General: Patient is laying in bed and answers questions appropriately Mentation: Patient is alert and oriented 4, Head: Normocephalic atraumatic Eyes: EOMI, pupils reactive to light Neck: Supple, nontender, midline Respiratory: Clear to auscultation bilaterally Cardiovascular: regular rate, no obvious murmurs Gastrointestinal: non-tender to palpation, bowel sounds heard. Neurological: Moves all extremities spontaneously Skin: No new skin lesions Assessment/Plan 1. Chest pain, most likely muscular strain - Patient states she feels as if pain has improved significantly. Started on Flexeril and seems to be helping control her symptoms. Is causing increase in sedation but did not want to change medication and plans to use medication at night or when not going to be driving. - Will start on Naproxen BID and offered heating pad as well. - Cardiology on board and recommendations appreciated. - CT surgery on board and after discussion does not believe retained wires are causing this pain. - ECHO shows EF 55% and mechanical MV sitting in proper position - Patient had original surgery Mar 28, 2017 at [facility]. Spoke with patients original CT surgeon who advises the patient not be discharged until her INR is at least 2 due to increased risk with mechanical MV (cell [phone] [phone], Dr. Fabiano Moura) - Pain management consulted and appreciate recommendations 2. Leukocytosis- normalized - Continue monitoring - blood cultures obtained and are negative 3. Mechanical mitral valve - Patient on Coumadin and INR subtherapeutic. Goal 2.5 to 3.5. Will continue on lovenox/coumadin bridge per cardiology - Will give Coumadin 7.5 tonight. Usually on Coumadin 4mg prior to admission - CM consult placed to make sure Lovenox will be covered by insurance if INR not therapeutic prior to discharge 4. Elevated TSH - will advise to have repeated once acute issue resolves 5. Disposition - INR will need to be 2 prior to discharge home with lovenox OR INR >2.5 - CM working on to assist with Lovenox shots - Continue on Flexeril and Naproxen for discomfort Problems: Exam/Review of Systems Vital Signs Vitals Vital Signs Date Time Temp Pulse Resp B/P Pulse Ox O2 Delivery O2 Flow Rate FiO2 04/28/17 15:36 97.9 59 18 98/56 99 Intake and Output 04/27/17 04/27/17 04/28/17 15:00 23:00 07:00 Intake Total 750 ml 300 ml Balance 750 ml 300 ml Results Result Diagram: 04/28/17 0755 04/28/17 0755 Results 24 hrs Laboratory Tests Test 04/28/17 07:55 04/28/17 09:34 White Blood Count 7.5 Red Blood Count 4.06 L Hemoglobin 12.0 Hematocrit 35.4 L Mean Corpuscular Volume 87.2 Mean Corpuscular Hemoglobin 29.6 Mean Corpuscular Hemoglobin Concent 33.9 Red Cell Distribution Width 12.8 Platelet Count 325 Mean Platelet Volume 9.4 Neutrophils % 50.6 Lymphocytes % 32.0 Monocytes % 8.1 Eosinophils % 8.3 H Basophils % 0.7 Nucleated Red Blood Cells % 0.0 Neutrophils # 3.8 Lymphocytes # 2.4 Monocytes # 0.6 Eosinophils # 0.6 H Basophils # 0.1 Nucleated Red Blood Cells # 0.0 Sodium Level 138 Potassium Level 4.1 Chloride Level 105 Carbon Dioxide Level 26 Anion Gap 11 Blood Urea Nitrogen 14 Creatinine 0.65 Glucose Level 85 Calcium Level 9.3 Phosphorus Level 4.3 Magnesium Level 1.8 Prothrombin Time 21.0 H Prothrombin Time Ratio 1.6 INR International Normalized Ratio 1.77 Medications Medications Current Medications Metoprolol Succinate (Toprol Xl) 25 mg BID PO Last administered on 04/27/17 20 :15; Admin Dose 25 MG; Start 04/23/17 at 09:00 Zolpidem Tartrate (Ambien) 10 mg QHS PRN PO INSOMNIA Last administered on 20:27; Admin Dose 10 MG; Start 04/23/17 at 02:00 Ondansetron HCl (Zofran Tab) 4 mg Q6H PRN PO NAUSEA AND/OR VOMITING; Start at 02:00 Nitroglycerin (Nitroglycerin (Sl Tab) 0.4 Mg) 1 tab Q5M PRN SL CHEST PAIN; Start 04/23/17 at 02:00 Acetaminophen (Tylenol Tab) 650 mg Q6H PRN PO PAIN LEVEL 1-3 OR FEVER; Start 04/23/17 at 02:00 Docusate Sodium (Colace) 100 mg Q12H PRN PO CONSTIPATION; Start 04/23/17 at 02 :00 Bisacodyl (Dulcolax) 5 mg DAILY PRN PO CONSTIPATION; Start 04/23/17 at 02:00 Enoxaparin Sodium (Lovenox) 65 mg Q12 SC Last administered on 04/28/17 09:41; Admin Dose 65 MG; Start 04/23/17 at 21:00 Al Hydrox/Mg Hydrox/Simethicone (Mag-Al Plus) 30 ml Q6H PRN PO GASTROINTESTINAL UPSET Last administered on 04/24/17 02:17; Admin Dose 30 ML; Start 04/24/17 at 01:30 Oxycodone/ Acetaminophen (Percocet (5/ 325)) 1 tab Q4H PRN PO PAIN LEVEL 4-6 Last administered on 04/27/17 08:13; Admin Dose 1 TAB; Start 04/24/17 at 11:30 Oxycodone/ Acetaminophen (Percocet (5/ 325)) 2 tab Q4H PRN PO PAIN 7-10/10 Last administered on 04/28/17 12:04; Admin Dose 2 TAB; Start 04/24/17 at 12:00 Pantoprazole (Protonix Tab) 40 mg DAILY@06 PO Last administered on 04/28/17 05 :45; Admin Dose 40 MG; Start 04/26/17 at 06:00 Cyclobenzaprine HCl (Flexeril) 10 mg TID PO Last administered on 04/28/17 12: 04; Admin Dose 10 MG; Start 04/25/17 at 13:00 Naproxen (Naprosyn) 500 mg BID PO Last administered on 04/28/17 09:36; Admin Dose 500 MG; Start 04/26/17 at 13:00 Warfarin Sodium (Coumadin) 7.5 mg DAILY@17 PO ; Start 04/29/17 at 17:00 Warfarin Sodium (Coumadin) 7.5 mg NOW PO Last administered on 04/28/17 15:06; Admin Dose 7.5 MG; Start 04/28/17 at 13:30; Stop 04/28/17 at 18:00 ALEKSEY GENAO Apr 28, 2017 15:40
[2017-04-28] MEDS ORDERED: SOD CHLORIDE 0.9% 500 ML IV ONE (23:00)
[2017-04-29] VITALS (10 sets, daily range): BP systolic 83–111; BP diastolic 45–63; PULSE 56–81; RESP 17–19
[2017-04-29] MEDS ORDERED: traMADol 50 MG TAB PO PRN (02:00)
[2017-04-29] MEDS ORDERED: SOD CHLORIDE 0.9% 1,000 ML IV SCH (02:00)
[2017-04-29] MEDS: ALBUTEROL HFA 8 GM INHALER INH SCH ×4 (02:01→20:00)
[2017-04-29] MEDS: PANTOPRAZOLE (EC) 40 MG TAB PO SCH (06:24)
[2017-04-29] MEDS: NAPROXEN 500 MG TAB PO SCH ×2 (08:19→21:00)
[2017-04-29] MEDS: CYCLOBENZAPRINE 10 MG TAB PO SCH ×3 (08:19→21:00)
[2017-04-29] MEDS: OXYCODONE/ACETAMINOPHEN (5/325) TAB PO PRN (08:19)
[2017-04-29] MEDS: METOPROLOL (XL) 25 MG TAB PO SCH ×2 (08:19→21:00)
[2017-04-29] MEDS: ENOXAPARIN 80 MG/0.8 ML SYG SC SCH ×2 (08:24→21:03)
[2017-04-29 08:48] LABS: INR 1.72; PROTIME 20.5 Sec (11.9-14.9); PT RATIO 1.6
--- NOTE | 2017-04-29 09:57 | CONS ---
Date/Time of Note Date/Time of Note DATE: 04/29/17 TIME: 09:56 Assessment/Plan Assessment/Plan Chief Complaint/Hosp Course 28-year-old female who is status post mitral valve prolapse probably 1 month ago. She was taking Percocet up to 2 weeks ago and after discontinuing this began developing left supra fossa pain which radiates into her left shoulder and left anterior upper chest wall. Without nausea vomiting shortness of breath cough exertional pain not present. Patient denies hemoptysis upper respiratory infection there is no prior history of trauma to her left shoulder is no past medical history of C-spine osteoarthritis which is documented. Patient is status post surgical intervention of lower thoracic spine approximately 10 years ago. The pain increased in severity with increasing respirations she also states that she is anxious when she takes deep breaths which exacerbates the pain. As an outpatient was taking only Percocet and Tylenol as needed. She says did nothing for pain other than some partial resolution when she was taking Percocet. Pain is graded 10/10 with medications 5/10 she is asking to continue her cassette and is nervous that the morphine will be taken away also. Description of pain is radicular sharp throbbing. With current medication she denies constipation itching mental cloudiness sweating fatigue drowsiness she is Axon for pain control medications anxious that these will be removed. She appears to be very anxious she has no past medical history of alcohol or drug abuse denies substance abuse denies she is negotiating and continue with the current pain control medications she is not at attempting to obtain higher levels of opioids but discontinue she is currently taking the route of administration for the morphine is orally indication that she uses pain medication in response to stressors in addition to pain she states that the pain is interrupting her physical functioning social relations mood sleeping patterns and overall function. Problems: Additional Assessment/Plan Low skeletal left shoulder discomfort Continue current course of treatment conservative nonsteroidal anti- inflammatory medications with PPI Support patient as she is very anxious Recommendations per cardiology Consultation Date/Type/Reason Admit Date/Time Apr 24, 2017 at 11:21 Hx of Present Illness 28-year-old female who is status post mitral valve prolapse probably 1 month ago. She was taking Percocet up to 2 weeks ago and after discontinuing this began developing left supra fossa pain which radiates into her left shoulder and left anterior upper chest wall. Without nausea vomiting shortness of breath cough exertional pain not present. Patient denies hemoptysis upper respiratory infection there is no prior history of trauma to her left shoulder is no past medical history of C-spine osteoarthritis which is documented. Patient is status post surgical intervention of lower thoracic spine approximately 10 years ago. The pain increased in severity with increasing respirations she also states that she is anxious when she takes deep breaths which exacerbates the pain. As an outpatient was taking only Percocet and Tylenol as needed. She says did nothing for pain other than some partial resolution when she was taking Percocet. Pain is graded 10/10 with medications 5/10 she is asking to continue her cassette and is nervous that the morphine will be taken away also. Description of pain is radicular sharp throbbing. With current medication she denies constipation itching mental cloudiness sweating fatigue drowsiness she is Axon for pain control medications anxious that these will be removed. She appears to be very anxious she has no past medical history of alcohol or drug abuse denies substance abuse denies she is negotiating and continue with the current pain control medications she is not at attempting to obtain higher levels of opioids but discontinue she is currently taking the route of administration for the morphine is orally indication that she uses pain medication in response to stressors in addition to pain she states that the pain is interrupting her physical functioning social relations mood sleeping patterns and overall function. Social History Alcohol Use: none Smoking Status: Current every day smoker Drug Use: none Exam/Review of Systems Vital Signs Vitals Vital Signs Date Time Temp Pulse Resp B/P Pulse Ox O2 Delivery O2 Flow Rate FiO2 04/29/17 08:26 98.1 58 17 99/58 98 Intake and Output 04/28/17 04/28/17 04/29/17 15:00 23:00 07:00 Intake Total 500 ml Balance 500 ml Results Result Diagram: 04/28/17 0755 04/28/17 0755 Results 24 hrs Laboratory Tests Test 04/29/17 07:38 Prothrombin Time 20.5 H Prothrombin Time Ratio 1.6 INR International Normalized Ratio 1.72 Medications Medications Current Medications Metoprolol Succinate (Toprol Xl) 25 mg BID PO Last administered on 04/27/17t 20 :15; Admin Dose 25 MG; Start 04/23/17 at 09:00 Zolpidem Tartrate (Ambien) 10 mg QHS PRN PO INSOMNIA Last administered on 20:27; Admin Dose 10 MG; Start 04/23/17 at 02:00 Ondansetron HCl (Zofran Tab) 4 mg Q6H PRN PO NAUSEA AND/OR VOMITING; Start at 02:00 Nitroglycerin (Nitroglycerin (Sl Tab) 0.4 Mg) 1 tab Q5M PRN SL CHEST PAIN; Start 04/23/17 at 02:00 Acetaminophen (Tylenol Tab) 650 mg Q6H PRN PO PAIN LEVEL 1-3 OR FEVER; Start 04/23/17 at 02:00 Docusate Sodium (Colace) 100 mg Q12H PRN PO CONSTIPATION; Start 04/23/17 at 02 :00 Bisacodyl (Dulcolax) 5 mg DAILY PRN PO CONSTIPATION; Start 04/23/17 at 02:00 Enoxaparin Sodium (Lovenox) 65 mg Q12 SC Last administered on 04/29/17 08:24; Admin Dose 65 MG; Start 04/23/17 at 21:00 Al Hydrox/Mg Hydrox/Simethicone (Mag-Al Plus) 30 ml Q6H PRN PO GASTROINTESTINAL UPSET Last administered on 04/24/17 02:17; Admin Dose 30 ML; Start 04/24/17 at 01:30 Oxycodone/ Acetaminophen (Percocet (5/ 325)) 1 tab Q4H PRN PO PAIN LEVEL 4-6 Last administered on 04/27/17 08:13; Admin Dose 1 TAB; Start 04/24/17 at 11:30 Oxycodone/ Acetaminophen (Percocet (5/ 325)) 2 tab Q4H PRN PO PAIN 7-10/10 Last administered on 04/29/17 08:19; Admin Dose 2 TAB; Start 04/24/17 at 12:00 Pantoprazole (Protonix Tab) 40 mg DAILY@06 PO Last administered on 04/29/17 06 :24; Admin Dose 40 MG; Start 04/26/17 at 06:00 Cyclobenzaprine HCl (Flexeril) 10 mg TID PO Last administered on 04/29/17 08: 19; Admin Dose 10 MG; Start 04/25/17 at 13:00 Naproxen (Naprosyn) 500 mg BID PO Last administered on 04/29/17 08:19; Admin Dose 500 MG; Start 04/26/17 at 13:00 Warfarin Sodium 7.5 mg 7.5 mg DAILY@17 PO ; Start 04/29/17 at 17:00 Sodium Chloride (NS) 1,000 ml @ 100 mls/hr Q10H IV Last administered on 02:00; Admin Dose 100 MLS/HR; Start 04/29/17 at 02:00 Tramadol HCl (Ultram) 50 mg Q6H PRN PO PAIN Last administered on 04/29/17 04: 14; Admin Dose 50 MG; Start 04/29/17 at 02:00 DC DAVIS Apr 29, 2017 09:57
[2017-04-29] MEDS ORDERED: WARFARIN 7.5 MG TAB PO ONE (11:57)
--- NOTE | 2017-04-29 14:57 | PN ---
Date/Time of Note Date/Time of Note DATE: 04/29/17 TIME: 14:56 Assessment/Plan VTE Prophylaxis VTE Prophylaxis Intervention: ambulation, other Lines/Catheters IV Catheter Type (from Nrs): Saline Lock Urinary Cath still in place: No Assessment/Plan Chief Complaint/Hosp Course s: 12.4 frustrated she is still here 12.5 still frustrated she is still admitted 12.6 no acute complaints, but wants to go home o: Physical exam General: Patient is laying in bed and answers questions appropriately Mentation: Patient is alert and oriented 4, Head: Normocephalic atraumatic Eyes: EOMI, pupils reactive to light Neck: Supple, nontender, midline Respiratory: Clear to auscultation bilaterally Cardiovascular: regular rate, no obvious murmurs Gastrointestinal: non-tender to palpation, bowel sounds heard. Neurological: Moves all extremities spontaneously Skin: No new skin lesions Assessment/Plan 1. Chest pain, most likely muscular strain - Patient states she feels as if pain has improved significantly. Started on Flexeril and seems to be helping control her symptoms. Is causing increase in sedation but did not want to change medication and plans to use medication at night or when not going to be driving. - Will start on Naproxen BID and offered heating pad as well. - Cardiology on board and recommendations appreciated. - CT surgery on board and after discussion does not believe retained wires are causing this pain. - ECHO shows EF 55% and mechanical MV sitting in proper position - Patient had original surgery Mar 28, 2017 at [facility]. Spoke with patients original CT surgeon who advises the patient not be discharged until her INR is at least 2 due to increased risk with mechanical MV (cell , Dr. Fabiano Moura) - Pain management consulted and appreciate recommendations 2. Leukocytosis- normalized - Continue monitoring - blood cultures obtained and are negative 3. Mechanical mitral valve - Patient on Coumadin and INR subtherapeutic. Goal 2.5 to 3.5. Will continue on lovenox/coumadin bridge per cardiology - Will give Coumadin 7.5 .Usually on Coumadin 4mg prior to admission - CM consult placed to make sure Lovenox will be covered by insurance if INR not therapeutic prior to discharge 4. Elevated TSH - will advise to have repeated once acute issue resolves 5. Disposition - INR will need to be 2 prior to discharge home with lovenox OR INR >2.5 - CM working on HH to assist with Lovenox shots - Continue on Flexeril and Naproxen for discomfort Problems: Exam/Review of Systems Vital Signs Vitals Vital Signs Date Time Temp Pulse Resp B/P Pulse Ox O2 Delivery O2 Flow Rate FiO2 04/29/17 12:18 77 04/29/17 11:26 98.2 18 83/45 99 Intake and Output 04/28/17 04/28/17 04/29/17 15:00 23:00 07:00 Intake Total 500 ml Balance 500 ml Results Result Diagram: 04/28/17 0755 04/28/17 0755 Results 24 hrs Laboratory Tests Test 04/29/17 07:38 Prothrombin Time 20.5 H Prothrombin Time Ratio 1.6 INR International Normalized Ratio 1.72 Medications Medications Current Medications Metoprolol Succinate (Toprol Xl) 25 mg BID PO Last administered on 04/27/17 20 :15; Admin Dose 25 MG; Start 04/23/17 at 09:00 Zolpidem Tartrate (Ambien) 10 mg QHS PRN PO INSOMNIA Last administered on 20:27; Admin Dose 10 MG; Start 04/23/17 at 02:00 Ondansetron HCl (Zofran Tab) 4 mg Q6H PRN PO NAUSEA AND/OR VOMITING; Start at 02:00 Nitroglycerin (Nitroglycerin (Sl Tab) 0.4 Mg) 1 tab Q5M PRN SL CHEST PAIN; Start 04/23/17 at 02:00 Acetaminophen (Tylenol Tab) 650 mg Q6H PRN PO PAIN LEVEL 1-3 OR FEVER; Start 04/23/17 at 02:00 Docusate Sodium (Colace) 100 mg Q12H PRN PO CONSTIPATION; Start 04/23/17 at 02 :00 Bisacodyl (Dulcolax) 5 mg DAILY PRN PO CONSTIPATION; Start 04/23/17 at 02:00 Enoxaparin Sodium (Lovenox) 65 mg Q12 SC Last administered on 04/29/17 08:24; Admin Dose 65 MG; Start 04/23/17 at 21:00 Al Hydrox/Mg Hydrox/Simethicone (Mag-Al Plus) 30 ml Q6H PRN PO GASTROINTESTINAL UPSET Last administered on 04/24/17 02:17; Admin Dose 30 ML; Start 04/24/17 at 01:30 Pantoprazole (Protonix Tab) 40 mg DAILY@06 PO Last administered on 04/29/17 06 :24; Admin Dose 40 MG; Start 04/26/17 at 06:00 Cyclobenzaprine HCl (Flexeril) 10 mg TID PO Last administered on 04/29/17 08: 19; Admin Dose 10 MG; Start 04/25/17 at 13:00 Naproxen (Naprosyn) 500 mg BID PO Last administered on 04/29/17 08:19; Admin Dose 500 MG; Start 04/26/17 at 13:00 Warfarin Sodium (Coumadin) 7.5 mg DAILY@17 PO ; Start 04/29/17 at 17:00 Oxycodone/ Acetaminophen (Endocet (10/ 325)) 1 tab Q4H PRN PO PAIN; Start 04/29 at 13:00 ALEKSEY GENAO Apr 29, 2017 14:57
--- NOTE | 2017-04-29 15:04 | CONS ---
Date/Time of Note Date/Time of Note DATE: 04/29/17 TIME: 15:03 Assessment/Plan Assessment/Plan Additional Assessment/Plan Chest wall pain, improved Mitral valve disease status post mechanical mitral valve replacement 03/28/2017 Subtherapeutic INR Retained pacer wire Patient's Coumadin dose increased to 7.5 mg yesterday continue bridging with Lovenox until INR is therapeutic. Consultation Date/Type/Reason Admit Date/Time Apr 24, 2017 at 11:21 Type of Consultation: cv 24 HR Interval Summary Free Text/Dictation Denies shortness of breath, chest pain Exam/Review of Systems Vital Signs Vitals Vital Signs Date Time Temp Pulse Resp B/P Pulse Ox O2 Delivery O2 Flow Rate FiO2 04/29/17 12:18 77 04/29/17 11:26 98.2 18 83/45 99 Intake and Output 04/28/17 04/28/17 04/29/17 14:59 22:59 06:59 Intake Total 500 ml Balance 500 ml Exam No apparent distress Constitutional: alert, oriented Head: normocephalic Respiratory: other (Coarse breath sounds bilaterally, no wheezing) Cardiovascular: regular rate and rhythm, systolic murmur (Mechanical click) Gastrointestinal: bowel sounds, non-tender, soft Extremities: other (No significant edema) Results Result Diagram: 04/28/17 0755 04/28/17 0755 Results 24 hrs Laboratory Tests Test 04/29/17 07:38 Prothrombin Time 20.5 H Prothrombin Time Ratio 1.6 INR International Normalized Ratio 1.72 Medications Medications Current Medications Metoprolol Succinate (Toprol Xl) 25 mg BID PO Last administered on 04/27/17 20 :15; Admin Dose 25 MG; Start 04/23/17 at 09:00 Zolpidem Tartrate (Ambien) 10 mg QHS PRN PO INSOMNIA Last administered on 20:27; Admin Dose 10 MG; Start 04/23/17 at 02:00 Ondansetron HCl (Zofran Tab) 4 mg Q6H PRN PO NAUSEA AND/OR VOMITING; Start at 02:00 Nitroglycerin (Nitroglycerin (Sl Tab) 0.4 Mg) 1 tab Q5M PRN SL CHEST PAIN; Start 04/23/17 at 02:00 Acetaminophen (Tylenol Tab) 650 mg Q6H PRN PO PAIN LEVEL 1-3 OR FEVER; Start 04/23/17 at 02:00 Docusate Sodium (Colace) 100 mg Q12H PRN PO CONSTIPATION; Start 04/23/17 at 02 :00 Bisacodyl (Dulcolax) 5 mg DAILY PRN PO CONSTIPATION; Start 04/23/17 at 02:00 Enoxaparin Sodium (Lovenox) 65 mg Q12 SC Last administered on 04/29/17 08:24; Admin Dose 65 MG; Start 04/23/17 at 21:00 Al Hydrox/Mg Hydrox/Simethicone (Mag-Al Plus) 30 ml Q6H PRN PO GASTROINTESTINAL UPSET Last administered on 04/24/17 02:17; Admin Dose 30 ML; Start 04/24/17 at 01:30 Pantoprazole (Protonix Tab) 40 mg DAILY@06 PO Last administered on 04/29/17 06 :24; Admin Dose 40 MG; Start 04/26/17 at 06:00 Cyclobenzaprine HCl (Flexeril) 10 mg TID PO Last administered on 04/29/17 08: 19; Admin Dose 10 MG; Start 04/25/17 at 13:00 Naproxen (Naprosyn) 500 mg BID PO Last administered on 04/29/17 08:19; Admin Dose 500 MG; Start 04/26/17 at 13:00 Warfarin Sodium (Coumadin) 7.5 mg DAILY@17 PO ; Start 04/29/17 at 17:00 Oxycodone/ Acetaminophen (Endocet (10/ 325)) 1 tab Q4H PRN PO PAIN; Start 04/29 at 13:00 Fabiano Alvarado DO Apr 29, 2017 15:04
[2017-04-29] MEDS ORDERED: WARFARIN 7.5 MG TAB PO SCH (17:00)
[2017-04-29] MEDS: OXYCODONE/ACETAMINOPHEN (10/325) TAB PO PRN (17:49)
[2017-04-29] MEDS: ZOLPIDEM 5 MG TAB PO PRN (21:05)
[2017-04-30] VITALS (9 sets, daily range): BP systolic 95–118; BP diastolic 52–59; PULSE 56–132; RESP 20
[2017-04-30] MEDS: ALBUTEROL HFA 8 GM INHALER INH SCH ×4 (02:55→20:00)
[2017-04-30] MEDS: PANTOPRAZOLE (EC) 40 MG TAB PO SCH (05:52)
[2017-04-30] MEDS: NAPROXEN 500 MG TAB PO SCH (09:04)
[2017-04-30] MEDS: CYCLOBENZAPRINE 10 MG TAB PO SCH ×3 (09:04→21:10)
[2017-04-30] MEDS: METOPROLOL (XL) 25 MG TAB PO SCH ×2 (09:05→21:00)
[2017-04-30] MEDS: ENOXAPARIN 80 MG/0.8 ML SYG SC SCH ×2 (09:06→21:11)
[2017-04-30 09:26] LABS: INR 1.59; PROTIME 19.3 Sec (11.9-14.9); PT RATIO 1.5
[2017-04-30] MEDS ORDERED: WARFARIN 10 MG TAB PO SCH (11:30)
--- NOTE | 2017-04-30 13:11 | CONS ---
Date/Time of Note Date/Time of Note DATE: 04/30/17 TIME: 13:10 Assessment/Plan Assessment/Plan Additional Assessment/Plan Chest wall pain, resolved Mitral valve disease status post mechanical mitral valve replacement 03/28/2017 Preserved ejection fraction Mild to moderate tricuspid valve regurgitation Subtherapeutic INR Retained pacer wire Patient with continual subtherapeutic INR, I have increased Coumadin to 10 mg today and continue bridging with Lovenox until INR is therapeutic. Consultation Date/Type/Reason Admit Date/Time Apr 24, 2017 at 11:21 Type of Consultation: cv 24 HR Interval Summary Free Text/Dictation Feeling well, denies shortness of breath or palpitations Exam/Review of Systems Vital Signs Vitals Vital Signs Date Time Temp Pulse Resp B/P Pulse Ox O2 Delivery O2 Flow Rate FiO2 04/30/17 12:19 59 04/30/17 11:43 98.5 20 99/52 99 Intake and Output 04/29/17 04/29/17 04/30/17 15:00 23:00 07:00 Intake Total 1200 ml 300 ml Balance 1200 ml 300 ml Exam No apparent distress Constitutional: alert, oriented, well developed Head: normocephalic Respiratory: other (Coarse breath sounds bilaterally, no wheezing) Cardiovascular: regular rate and rhythm, systolic murmur (Mechanical click) Gastrointestinal: bowel sounds, non-tender, soft Extremities: other (No significant edema) Results Result Diagram: 04/28/17 0755 04/28/17 0755 Results 24 hrs Laboratory Tests Test 04/30/17 07:19 Prothrombin Time 19.3 H Prothrombin Time Ratio 1.5 INR International Normalized Ratio 1.59 Medications Medications Current Medications Metoprolol Succinate (Toprol Xl) 25 mg BID PO Last administered on 04/30/17 09 :05; Admin Dose 25 MG; Start 04/23/17 at 09:00 Zolpidem Tartrate (Ambien) 10 mg QHS PRN PO INSOMNIA Last administered on 21:05; Admin Dose 10 MG; Start 04/23/17 at 02:00 Ondansetron HCl (Zofran Tab) 4 mg Q6H PRN PO NAUSEA AND/OR VOMITING; Start at 02:00 Nitroglycerin (Nitroglycerin (Sl Tab) 0.4 Mg) 1 tab Q5M PRN SL CHEST PAIN; Start 04/23/17 at 02:00 Acetaminophen (Tylenol Tab) 650 mg Q6H PRN PO PAIN LEVEL 1-3 OR FEVER; Start 04/23/17 at 02:00 Docusate Sodium (Colace) 100 mg Q12H PRN PO CONSTIPATION; Start 04/23/17 at 02 :00 Bisacodyl (Dulcolax) 5 mg DAILY PRN PO CONSTIPATION; Start 04/23/17 at 02:00 Enoxaparin Sodium (Lovenox) 65 mg Q12 SC Last administered on 04/30/17 09:06; Admin Dose 65 MG; Start 04/23/17 at 21:00 Al Hydrox/Mg Hydrox/Simethicone (Mag-Al Plus) 30 ml Q6H PRN PO GASTROINTESTINAL UPSET Last administered on 04/24/17 02:17; Admin Dose 30 ML; Start 04/24/17 at 01:30 Pantoprazole (Protonix Tab) 40 mg DAILY@06 PO Last administered on 04/30/17 05 :52; Admin Dose 40 MG; Start 04/26/17 at 06:00 Cyclobenzaprine HCl (Flexeril) 10 mg TID PO Last administered on 04/30/17 12: 28; Admin Dose 10 MG; Start 04/25/17 at 13:00 Naproxen (Naprosyn) 500 mg BID PO Last administered on 04/30/17 09:04; Admin Dose 500 MG; Start 04/26/17 at 13:00 Oxycodone/ Acetaminophen (Endocet (10/ 325)) 1 tab Q4H PRN PO PAIN Last administered on 04/29/17 17:49; Admin Dose 1 TAB; Start 04/29/17 at 13:00 Warfarin Sodium (Coumadin) 10 mg NOW PO Last administered on 04/30/17 12:29; Admin Dose 10 MG; Start 04/30/17 at 11:30; Stop 04/30/17 at 23:00 Warfarin Sodium (Coumadin) 10 mg DAILY@17 PO ; Start 05/01/17 at 17:00 Fabiano Alvarado DO Apr 30, 2017 13:11
--- NOTE | 2017-04-30 13:54 | PN ---
Date/Time of Note Date/Time of Note DATE: 04/30/17 TIME: 13:50 Assessment/Plan VTE Prophylaxis VTE Prophylaxis Intervention: ambulation, SCD's Lines/Catheters IV Catheter Type (from Nrsg): Saline Lock Urinary Cath still in place: No Assessment/Plan Chief Complaint/Hosp Course s: 12.4 frustrated she is still here 12.5 still frustrated she is still admitted 12.6 no acute complaints, but wants to go home 12.7 still frustrated o: Physical exam General: Patient is laying in bed and answers questions appropriately Mentation: Patient is alert and oriented 4, Head: Normocephalic atraumatic Eyes: EOMI, pupils reactive to light Neck: Supple, nontender, midline Respiratory: Clear to auscultation bilaterally Cardiovascular: regular rate, no obvious murmurs Gastrointestinal: non-tender to palpation, bowel sounds heard. Neurological: Moves all extremities spontaneously Skin: No new skin lesions Assessment/Plan 1. Chest pain, most likely muscular strain - Patient states she feels as if pain has improved significantly. Started on Flexeril and seems to be helping control her symptoms. Is causing increase in sedation but did not want to change medication and plans to use medication at night or when not going to be driving. - stopped naproxen, ?interaction with warfarin, although unlikely - Cardiology on board and recommendations appreciated. - CT surgery on board and after discussion does not believe retained wires are causing this pain. - ECHO shows EF 55% and mechanical MV sitting in proper position - Patient had original surgery Mar 28, 2017 at [facility]. Spoke with patients original CT surgeon who advises the patient not be discharged until her INR is at least 2 due to increased risk with mechanical MV (cell [phone], Dr. Fabiano Moura) - Pain management consulted and appreciate recommendations 2. Leukocytosis- normalized - Continue monitoring - blood cultures obtained and are negative 3. Mechanical mitral valve - Patient on Coumadin and INR subtherapeutic. Goal 2.5 to 3.5. Will continue on lovenox/coumadin bridge per cardiology -Issue is that INR continues to decrease while we give increasing doses of warfarin. Will give Coumadin 10 .Usually on Coumadin 4mg prior to admission - CM consult placed to make sure Lovenox will be covered by insurance if INR not therapeutic prior to discharge 4. Elevated TSH - will advise to have repeated once acute issue resolves 5. Disposition - INR will need to be 2 prior to discharge home with lovenox OR INR >2.5 - CM working on HH to assist with Lovenox shots - Continue on Flexeril for discomfort Problems: Exam/Review of Systems Vital Signs Vitals Vital Signs Date Time Temp Pulse Resp B/P Pulse Ox O2 Delivery O2 Flow Rate FiO2 04/30/17 12:19 59 04/30/17 11:43 98.5 20 99/52 99 Intake and Output 04/29/17 04/29/17 04/30/17 15:00 23:00 07:00 Intake Total 1200 ml 300 ml Balance 1200 ml 300 ml Results Result Diagram: 04/28/17 0755 04/28/17 0755 Results 24 hrs Laboratory Tests Test 04/30/17 07:19 Prothrombin Time 19.3 H Prothrombin Time Ratio 1.5 INR International Normalized Ratio 1.59 Medications Medications Current Medications Metoprolol Succinate (Toprol Xl) 25 mg BID PO Last administered on 04/30/17 09 :05; Admin Dose 25 MG; Start 04/23/17 at 09:00 Zolpidem Tartrate (Ambien) 10 mg QHS PRN PO INSOMNIA Last administered on 21:05; Admin Dose 10 MG; Start 04/23/17 at 02:00 Ondansetron HCl (Zofran Tab) 4 mg Q6H PRN PO NAUSEA AND/OR VOMITING; Start at 02:00 Nitroglycerin (Nitroglycerin (Sl Tab) 0.4 Mg) 1 tab Q5M PRN SL CHEST PAIN; Start 04/23/17 at 02:00 Acetaminophen (Tylenol Tab) 650 mg Q6H PRN PO PAIN LEVEL 1-3 OR FEVER; Start 04/23/17 at 02:00 Docusate Sodium (Colace) 100 mg Q12H PRN PO CONSTIPATION; Start 04/23/17 at 02 :00 Bisacodyl (Dulcolax) 5 mg DAILY PRN PO CONSTIPATION; Start 04/23/17 at 02:00 Enoxaparin Sodium (Lovenox) 65 mg Q12 SC Last administered on 04/30/17 09:06; Admin Dose 65 MG; Start 04/23/17 at 21:00 Al Hydrox/Mg Hydrox/Simethicone (Mag-Al Plus) 30 ml Q6H PRN PO GASTROINTESTINAL UPSET Last administered on 04/24/17 02:17; Admin Dose 30 ML; Start 04/24/17 at 01:30 Pantoprazole (Protonix Tab) 40 mg DAILY@06 PO Last administered on 04/30/17 05 :52; Admin Dose 40 MG; Start 04/26/17 at 06:00 Cyclobenzaprine HCl (Flexeril) 10 mg TID PO Last administered on 04/30/17 12: 28; Admin Dose 10 MG; Start 04/25/17 at 13:00 Naproxen (Naprosyn) 500 mg BID PO Last administered on 04/30/17 09:04; Admin Dose 500 MG; Start 04/26/17 at 13:00 Oxycodone/ Acetaminophen (Endocet (10/ 325)) 1 tab Q4H PRN PO PAIN Last administered on 04/29/17 17:49; Admin Dose 1 TAB; Start 04/29/17 at 13:00 Warfarin Sodium (Coumadin) 10 mg NOW PO Last administered on 04/30/17 12:29; Admin Dose 10 MG; Start 04/30/17 at 11:30; Stop 04/30/17 at 23:00 Warfarin Sodium (Coumadin) 10 mg DAILY@17 PO ; Start 05/01/17 at 17:00 ALEKSEY GENAO Apr 30, 2017 13:54
[2017-04-30] MEDS: ZOLPIDEM 5 MG TAB PO PRN (21:10)
[2017-05-01] VITALS (12 sets, daily range): BP systolic 92–104; BP diastolic 51–57; PULSE 62–90; RESP 17–20
[2017-05-01] MEDS: ALBUTEROL HFA 8 GM INHALER INH SCH ×4 (02:25→20:44)
[2017-05-01] MEDS: PANTOPRAZOLE (EC) 40 MG TAB PO SCH (06:38)
[2017-05-01] MEDS: CYCLOBENZAPRINE 10 MG TAB PO SCH ×3 (08:28→20:44)
[2017-05-01] MEDS: ENOXAPARIN 80 MG/0.8 ML SYG SC SCH ×2 (08:30→20:47)
[2017-05-01] MEDS: METOPROLOL (XL) 25 MG TAB PO SCH ×2 (08:31→20:48)
[2017-05-01 08:44] LABS: BASOPHIL # 0.1 10^3/ul (0.0-0.1); BASOPHILS % 0.6 % (0.0-2.0); EOSINOPHILS # 0.3 10^3/ul (0.0-0.5); EOSINOPHILS % 4.1 % (0.0-7.0); HEMATOCRIT 37.7 % (37.0-47.0); HEMOGLOBIN 12.7 g/dl (12.0-16.0); LYMPHOCYTES # 2.2 10^3/ul (0.8-2.9); LYMPHOCYTES % 27.8 % (15.0-51.0); MEAN CORPUSCULAR HEMOGLOBIN 29.4 pg (29.0-33.0); MEAN CORPUSCULAR HGB CONC 33.7 g/dl (32.0-37.0); MEAN CORPUSCULAR VOLUME 87.3 fl (82.0-101.0); MEAN PLATELET VOLUME 9.6 fl (7.4-10.4); MONOCYTE # 0.7 10^3/ul (0.3-0.9); MONOCYTES % 9.1 % (0.0-11.0); NEUTROPHIL # 4.5 10^3/ul (1.6-7.5); NEUTROPHILS % 57.9 % (39.0-77.0); PLATELET COUNT 316 10^3/UL (140-415); RED BLOOD COUNT 4.32 10^6/ul (4.20-5.40); RED CELL DISTRIBUTION WIDTH 12.8 % (11.5-14.5); WHITE BLOOD COUNT 7.8 10^3/ul (4.8-10.8)
[2017-05-01 09:00] LABS: INR 1.76; PROTIME 20.9 Sec (11.9-14.9); PT RATIO 1.6
[2017-05-01 09:07] LABS: CALCIUM 9.4 mg/dl (8.4-10.2); CREATININE 0.66 mg/dl (0.44-1.00); MAGNESIUM 1.8 mg/dl (1.7-2.5); PHOSPHORUS 3.7 mg/dl (2.5-4.9); POTASSIUM 4.5 mmol/L (3.5-5.1)
--- NOTE | 2017-05-01 12:36 | CONS ---
Date/Time of Note Date/Time of Note DATE: 05/01/17 TIME: 12:33 Assessment/Plan Assessment/Plan Additional Assessment/Plan Chest wall pain, resolved Mitral valve disease status post mechanical mitral valve replacement 03/28/2017 Preserved ejection fraction Mild to moderate tricuspid valve regurgitation Subtherapeutic INR Retained pacer wire Patient with slowly increasing INR with increased dose of Coumadin. Continue Coumadin 10 mg daily, I have asked the nurse to give her daily dose to her now. Continue bridging with Lovenox until INR is therapeutic. Consultation Date/Type/Reason Admit Date/Time Apr 24, 2017 at 11:21 Type of Consultation: cv 24 HR Interval Summary Free Text/Dictation Patient seen and examined. Denies palpitations, shortness of breath, chest pain Exam/Review of Systems Vital Signs Vitals Vital Signs Date Time Temp Pulse Resp B/P Pulse Ox O2 Delivery O2 Flow Rate FiO2 05/01/17 12:00 98.7 67 18 104/56 98 Intake and Output 04/30/17 04/30/17 05/01/17 15:00 23:00 07:00 Intake Total 1000 ml 300 ml Balance 1000 ml 300 ml Exam No apparent distress Constitutional: alert, oriented Head: normocephalic Respiratory: other (Coarse breath sounds bilaterally, no wheezing) Cardiovascular: other, regular rate and rhythm, systolic murmur (Mechanical click) Gastrointestinal: bowel sounds, non-tender, soft Extremities: other (No edema) Results Result Diagram: 05/01/17 0755 05/01/17 0755 Results 24 hrs Laboratory Tests Test 05/01/17 07:55 White Blood Count 7.8 Red Blood Count 4.32 Hemoglobin 12.7 Hematocrit 37.7 Mean Corpuscular Volume 87.3 Mean Corpuscular Hemoglobin 29.4 Mean Corpuscular Hemoglobin Concent 33.7 Red Cell Distribution Width 12.8 Platelet Count 316 Mean Platelet Volume 9.6 Neutrophils % 57.9 Lymphocytes % 27.8 Monocytes % 9.1 Eosinophils % 4.1 Basophils % 0.6 Nucleated Red Blood Cells % 0.0 Neutrophils # 4.5 Lymphocytes # 2.2 Monocytes # 0.7 Eosinophils # 0.3 Basophils # 0.1 Nucleated Red Blood Cells # 0.0 Prothrombin Time 20.9 H Prothrombin Time Ratio 1.6 INR International Normalized Ratio 1.76 Sodium Level 140 Potassium Level 4.5 Chloride Level 107 Carbon Dioxide Level 27 Anion Gap 11 Blood Urea Nitrogen 12 Creatinine 0.66 Glucose Level 93 Calcium Level 9.4 Phosphorus Level 3.7 Magnesium Level 1.8 Medications Medications Current Medications Metoprolol Succinate (Toprol Xl) 25 mg BID PO Last administered on 04/30/17 09 :05; Admin Dose 25 MG; Start 04/23/17 at 09:00 Zolpidem Tartrate (Ambien) 10 mg QHS PRN PO INSOMNIA Last administered on 21:10; Admin Dose 10 MG; Start 04/23/17 at 02:00 Ondansetron HCl (Zofran Tab) 4 mg Q6H PRN PO NAUSEA AND/OR VOMITING; Start at 02:00 Nitroglycerin (Nitroglycerin (Sl Tab) 0.4 Mg) 1 tab Q5M PRN SL CHEST PAIN; Start 04/23/17 at 02:00 Acetaminophen (Tylenol Tab) 650 mg Q6H PRN PO PAIN LEVEL 1-3 OR FEVER; Start 04/23/17 at 02:00 Docusate Sodium (Colace) 100 mg Q12H PRN PO CONSTIPATION; Start 04/23/17 at 02 :00 Bisacodyl (Dulcolax) 5 mg DAILY PRN PO CONSTIPATION; Start 04/23/17 at 02:00 Enoxaparin Sodium (Lovenox) 65 mg Q12 SC Last administered on 05/01/17 08:30; Admin Dose 65 MG; Start 04/23/17 at 21:00 Al Hydrox/Mg Hydrox/Simethicone (Mag-Al Plus) 30 ml Q6H PRN PO GASTROINTESTINAL UPSET Last administered on 04/24/17 02:17; Admin Dose 30 ML; Start 04/24/17 at 01:30 Pantoprazole (Protonix Tab) 40 mg DAILY@06 PO Last administered on 05/01/17 06 :38; Admin Dose 40 MG; Start 04/26/17 at 06:00 Cyclobenzaprine HCl (Flexeril) 10 mg TID PO Last administered on 05/01/17 08: 28; Admin Dose 10 MG; Start 04/25/17 at 13:00 Oxycodone/ Acetaminophen (Endocet (10/ 325)) 1 tab Q4H PRN PO PAIN Last administered on 04/29/17 17:49; Admin Dose 1 TAB; Start 04/29/17 at 13:00 Warfarin Sodium (Coumadin) 10 mg DAILY@17 PO ; Start 05/01/17 at 17:00 Fabiano Alvarado DO May 01, 2017 12:36
[2017-05-01] MEDS ORDERED: WARFARIN 10 MG TAB PO ONE (13:30)
--- NOTE | 2017-05-01 14:56 | PN ---
Date/Time of Note Date/Time of Note DATE: 05/01/17 TIME: 14:54 Assessment/Plan VTE Prophylaxis VTE Prophylaxis Intervention: SCD's Lines/Catheters IV Catheter Type (from Nrsg): Saline Lock Urinary Cath still in place: No Assessment/Plan Chief Complaint/Hosp Course s: 12.4 frustrated she is still here 12.5 still frustrated she is still admitted 12.6 no acute complaints, but wants to go home 12.7 still frustrated 12.8 states she wants to leave, frustrated she is still in the hospital o: Physical exam General: Patient is laying in bed and answers questions appropriately Mentation: Patient is alert and oriented 4, Head: Normocephalic atraumatic Eyes: EOMI, pupils reactive to light Neck: Supple, nontender, midline Respiratory: Clear to auscultation bilaterally Cardiovascular: regular rate, no obvious murmurs Gastrointestinal: non-tender to palpation, bowel sounds heard. Neurological: Moves all extremities spontaneously Skin: No new skin lesions Assessment/Plan 1. Chest pain, most likely muscular strain - Patient states she feels as if pain has improved significantly. Started on Flexeril and seems to be helping control her symptoms. Is causing increase in sedation but did not want to change medication and plans to use medication at night or when not going to be driving. - stopped naproxen, ?interaction with warfarin, although unlikely - Cardiology on board and recommendations appreciated. - CT surgery on board and after discussion does not believe retained wires are causing this pain. - ECHO shows EF 55% and mechanical MV sitting in proper position - Patient had original surgery Mar 28, 2017 at [facility]. Spoke with patients original CT surgeon who advises the patient not be discharged until her INR is at least 2 due to increased risk with mechanical MV (cell [phone], Dr. Fabiano Moura) - Pain management consulted and appreciate recommendations 2. Leukocytosis- normalized - Continue monitoring - blood cultures obtained and are negative 3. Mechanical mitral valve - Patient on Coumadin and INR subtherapeutic. Goal 2.5 to 3.5. Will continue on lovenox/coumadin bridge per cardiology -INR now increasing appropriately. Will give Coumadin 10 .Usually on Coumadin 4mg prior to admission - CM consult placed to make sure Lovenox will be covered by insurance if INR not therapeutic prior to discharge 4. Elevated TSH - will advise to have repeated once acute issue resolves 5. Disposition - INR will need to be 2 prior to discharge home with lovenox OR INR >2.5 - CM working on to assist with Lovenox shots, approved, awaiting delivery - Continue on Flexeril for discomfort Problems: Exam/Review of Systems Vital Signs Vitals Vital Signs Date Time Temp Pulse Resp B/P Pulse Ox O2 Delivery O2 Flow Rate FiO2 05/01/17 12:41 62 05/01/17 12:00 98.7 18 104/56 98 Intake and Output 04/30/17 04/30/17 05/01/17 15:00 23:00 07:00 Intake Total 1000 ml 300 ml Balance 1000 ml 300 ml Results Result Diagram: 05/01/17 0755 05/01/17 0755 Results 24 hrs Laboratory Tests Test 05/01/17 07:55 White Blood Count 7.8 Red Blood Count 4.32 Hemoglobin 12.7 Hematocrit 37.7 Mean Corpuscular Volume 87.3 Mean Corpuscular Hemoglobin 29.4 Mean Corpuscular Hemoglobin Concent 33.7 Red Cell Distribution Width 12.8 Platelet Count 316 Mean Platelet Volume 9.6 Neutrophils % 57.9 Lymphocytes % 27.8 Monocytes % 9.1 Eosinophils % 4.1 Basophils % 0.6 Nucleated Red Blood Cells % 0.0 Neutrophils # 4.5 Lymphocytes # 2.2 Monocytes # 0.7 Eosinophils # 0.3 Basophils # 0.1 Nucleated Red Blood Cells # 0.0 Prothrombin Time 20.9 H Prothrombin Time Ratio 1.6 INR International Normalized Ratio 1.76 Sodium Level 140 Potassium Level 4.5 Chloride Level 107 Carbon Dioxide Level 27 Anion Gap 11 Blood Urea Nitrogen 12 Creatinine 0.66 Glucose Level 93 Calcium Level 9.4 Phosphorus Level 3.7 Magnesium Level 1.8 Medications Medications Current Medications Metoprolol Succinate (Toprol Xl) 25 mg BID PO Last administered on 04/30/17 09 :05; Admin Dose 25 MG; Start 04/23/17 at 09:00 Zolpidem Tartrate (Ambien) 10 mg QHS PRN PO INSOMNIA Last administered on 21:10; Admin Dose 10 MG; Start 04/23/17 at 02:00 Ondansetron HCl (Zofran Tab) 4 mg Q6H PRN PO NAUSEA AND/OR VOMITING; Start at 02:00 Nitroglycerin (Nitroglycerin (Sl Tab) 0.4 Mg) 1 tab Q5M PRN SL CHEST PAIN; Start 04/23/17 at 02:00 Acetaminophen (Tylenol Tab) 650 mg Q6H PRN PO PAIN LEVEL 1-3 OR FEVER; Start 04/23/17 at 02:00 Docusate Sodium (Colace) 100 mg Q12H PRN PO CONSTIPATION; Start 04/23/17 at 02 :00 Bisacodyl (Dulcolax) 5 mg DAILY PRN PO CONSTIPATION; Start 04/23/17 at 02:00 Enoxaparin Sodium (Lovenox) 65 mg Q12 SC Last administered on 05/01/17 08:30; Admin Dose 65 MG; Start 04/23/17 at 21:00 Al Hydrox/Mg Hydrox/Simethicone (Mag-Al Plus) 30 ml Q6H PRN PO GASTROINTESTINAL UPSET Last administered on 04/24/17 02:17; Admin Dose 30 ML; Start 04/24/17 at 01:30 Pantoprazole (Protonix Tab) 40 mg DAILY@06 PO Last administered on 05/01/17 06 :38; Admin Dose 40 MG; Start 04/26/17 at 06:00 Cyclobenzaprine HCl (Flexeril) 10 mg TID PO Last administered on 05/01/17 12: 43; Admin Dose 10 MG; Start 04/25/17 at 13:00 Oxycodone/ Acetaminophen (Endocet (10/ 325)) 1 tab Q4H PRN PO PAIN Last administered on 04/29/17 17:49; Admin Dose 1 TAB; Start 04/29/17 at 13:00 Warfarin Sodium (Coumadin) 10 mg DAILY@17 PO ; Start 05/02/17 at 17:00 ALEKSEY GENAO May 01, 2017 14:56
[2017-05-01] MEDS ORDERED: WARFARIN 10 MG TAB PO SCH (17:00)
[2017-05-02] VITALS (11 sets, daily range): BP systolic 93–118; BP diastolic 56–68; PULSE 74–90; RESP 18–21
[2017-05-02] MEDS: PANTOPRAZOLE (EC) 40 MG TAB PO SCH (05:32)
[2017-05-02] MEDS: ALBUTEROL HFA 8 GM INHALER INH SCH ×4 (05:32→20:28)
[2017-05-02 07:41] LABS: INR 1.97; PROTIME 22.9 Sec (11.9-14.9); PT RATIO 1.8
[2017-05-02] MEDS: METOPROLOL (XL) 25 MG TAB PO SCH ×2 (09:00→21:00)
[2017-05-02] MEDS: CYCLOBENZAPRINE 10 MG TAB PO SCH ×3 (10:17→20:20)
[2017-05-02] MEDS: ENOXAPARIN 80 MG/0.8 ML SYG SC SCH ×2 (10:18→20:22)
[2017-05-02] MEDS ORDERED: METO-335 PO (11:29)
[2017-05-02] MEDS ORDERED: ENOX60DI2 SC (11:29)
[2017-05-02] MEDS ORDERED: COU10 PO (11:29)
[2017-05-02] MEDS ORDERED: CYCL-319 PO (11:29)
--- NOTE | 2017-05-02 13:56 | PDOCDIS ---
Discharge Instructions CONDITION Patient Condition: Stable HOME CARE INSTRUCTIONS: Special Diet: REGULAR ACTIVITY: Activity Restrictions: Slowly Increase Activity FOLLOW UP/APPOINTMENTS Follow-up Plan 1. Follow up with warfarin(coumadin) center for repeat INR as soon as possible 2. Continue lovenox subqutaneous injections, as well as warfarin orally, until INR >2.5 [address]. Follow up with CT surgeon within 1-2 weeks 4. Follow up with responder within 1-2 weeks 5. Follow up with your primary care provider within 2-4 weeks ALEKSEY GENAO May 02, 2017 13:56
--- NOTE | 2017-05-02 14:00 | DS ---
Date/Time of Note Date/Time of Note DATE: 05/02/17 TIME: 13:59 Discharge Summary Admission/Discharge Info Admit Date/Time Apr 24, 2017 at 11:21 Discharge Date/Time Patient Condition: Stable Hospital Course Patient is a 36-year-old female with past medical history of recent mitral valve replacement who presented originally for chest pain, found to have musculoskeletal chest pain. Patient was seen by cardiology and her outpatient cardiothoracic surgeon who performed mitral valve replacement was called which recommended an INR above 2.0 before patient can be discharged home on Lovenox subcu injections along with warfarin. Patient underwent warfarin bridge with Lovenox while here in the hospital however there was complications as far as achieving a therapeutic INR, patient insurance also had a prior Auth for Lovenox and will require some time per case management. Patient is to be discharged with INR greater than 2.0 as long as she has her Lovenox subcu injections delivered bedside to take with warfarin. If patient's INR is above 2.5 she is to be discharged with just warfarin. Patient is to follow-up with CT surgery and cardiology as soon as possible. Home Meds Active Scripts Metoprolol Succinate* (Toprol XL*) 25 Mg Tab.sr.24h, 12.5 MG PO DAILY, #30 TAB Prov:ALEKSEY GENAO 05/02/17 Enoxaparin Sodium (Enoxaparin Sodium) 60 Mg/0.6 Ml Syringe, 60 MG SC Q12, #14 SYR Prov:ALEKSEY GENAO 05/02/17 Cyclobenzaprine Hcl* (Cyclobenzaprine Hcl*) 10 Mg Tablet, 10 MG PO TID Y for MUSCLE SPASMS for 7 Days, #21 TAB Prov:ALEKSEY GENAO 05/02/17 Warfarin Sodium (Coumadin) 10 Mg Tablet, 10 MG PO DAILY@17 for 30 Days, #30 TAB Prov:ALEKSEY GENAO 05/02/17 Reported Medications Albuterol Sulfate* (Ventolin HFA*) 18 Gm Hfa.aer.ad, 2 PUFF INHALATION Q6H, #1 INHALER 04/22/17 Discontinued Reported Medications Warfarin Sodium* (Warfarin Sodium*) 4 Mg Tablet, 4 MG PO DAILY, TAB 04/22/17 Metoprolol Succinate* (Toprol XL*) 25 Mg Tab.sr.24h, 25 MG PO BID, #30 TAB 04/22/17 Zolpidem Tartrate* (Zolpidem Tartrate*) 10 Mg Tablet, 10 MG PO QHS Y for INSOMNIA, #30 TAB 04/22/17 Follow-up Plan 1. Follow up with warfarin(coumadin) center for repeat INR as soon as possible 2. Continue lovenox subqutaneous injections, as well as warfarin orally, until INR >2.5 [address]. Follow up with CT surgeon within 1-2 weeks 4. Follow up with valve technician within 1-2 weeks 5. Follow up with your primary care provider within 2-4 weeks Primary Care Provider Olivia Murry MD Time spent on discharge: > 30 minutes Pending Labs Laboratory Tests Test 05/02/17 06:58 Prothrombin Time 22.9Sec (11.9-14.9) Prothrombin Time Ratio 1.8 INR International Normalized Ratio 1.97 ALEKSEY GENAO May 02, 2017 14:00
[2017-05-02] MEDS: WARFARIN 10 MG TAB PO SCH (18:05)
[2017-05-03] VITALS (11 sets, daily range): BP systolic 88–114; BP diastolic 53–67; PULSE 70–87; RESP 18–20
[2017-05-03] MEDS: ALBUTEROL HFA 8 GM INHALER INH SCH ×4 (02:15→20:00)
[2017-05-03] MEDS: PANTOPRAZOLE (EC) 40 MG TAB PO SCH (05:55)
[2017-05-03 06:36] LABS: INR 2.26; PROTIME 25.5 Sec (11.9-14.9)
[2017-05-03] MEDS: METOPROLOL (XL) 25 MG TAB PO SCH ×2 (09:00→20:18)
[2017-05-03] MEDS: CYCLOBENZAPRINE 10 MG TAB PO SCH ×3 (09:04→20:18)
[2017-05-03] MEDS: ENOXAPARIN 80 MG/0.8 ML SYG SC SCH ×2 (09:05→20:21)
--- NOTE | 2017-05-03 12:12 | PN ---
Date/Time of Note Date/Time of Note DATE: 05/03/17 TIME: 12:09 Assessment/Plan VTE Prophylaxis VTE Prophylaxis Intervention: SCD's Lines/Catheters IV Catheter Type (from Nrs): Saline Lock Urinary Cath still in place: No Assessment/Plan Chief Complaint/Hosp Course Chief Complaint/Hosp Course s: 12.4 frustrated she is still here 12.5 still frustrated she is still admitted 12.6 no acute complaints, but wants to go home 12.7 still frustrated 12.8 states she wants to leave, frustrated she is still in the hospital 12.10 still frustrated, but willing to stay until tomorrow as INR is close to therapeutic o: Physical exam General: Patient is laying in bed and answers questions appropriately Mentation: Patient is alert and oriented 4, Head: Normocephalic atraumatic Eyes: EOMI, pupils reactive to light Neck: Supple, nontender, midline Respiratory: Clear to auscultation bilaterally Cardiovascular: regular rate, no obvious murmurs Gastrointestinal: non-tender to palpation, bowel sounds heard. Neurological: Moves all extremities spontaneously Skin: No new skin lesions Assessment/Plan 1. Chest pain, most likely muscular strain - Patient states she feels as if pain has improved significantly. Started on Flexeril and seems to be helping control her symptoms. Is causing increase in sedation but did not want to change medication and plans to use medication at night or when not going to be driving. - stopped naproxen, ?interaction with warfarin, although unlikely - Cardiology on board and recommendations appreciated. - CT surgery on board and after discussion does not believe retained wires are causing this pain. - ECHO shows EF 55% and mechanical MV sitting in proper position - Patient had original surgery Mar 28, 2017 at [facility]. Spoke with patients original CT surgeon who advises the patient not be discharged until her INR is at least 2 due to increased risk with mechanical MV (cell , Dr. Fabiano Moura) - Pain management consulted and appreciate recommendations 2. Leukocytosis- normalized - Continue monitoring - blood cultures obtained and are negative 3. Mechanical mitral valve - Patient on Coumadin and INR subtherapeutic. Goal 2.5 to 3.5. Will continue on lovenox/coumadin bridge per cardiology -INR now increasing appropriately. Will give Coumadin 10 .Usually on Coumadin 4mg prior to admission - CM consult placed to make sure Lovenox will be covered by insurance if INR not therapeutic prior to discharge 4. Elevated TSH - will advise to have repeated once acute issue resolves 5. Disposition - INR will need to be 2 prior to discharge home with lovenox OR INR >2.5 - major issue of INR appears to be resolving, possible therapeutic levels tomorrow. doubt lovenox can be delivered/prior auth approved over the weekend -likely DC tomorrow if INR >2, on warfarin 10mg, patient has appt with doctor for tomorrow. Rx in charge, DC summary done. Problems: Exam/Review of Systems Vital Signs Vitals Vital Signs Date Time Temp Pulse Resp B/P Pulse Ox O2 Delivery O2 Flow Rate FiO2 05/03/17 08:06 98.0 75 18 99/55 98 Intake and Output 05/02/17 05/02/17 05/03/17 14:59 22:59 06:59 Intake Total 800 ml 200 ml Balance 800 ml 200 ml Results Result Diagram: 05/01/17 0755 05/01/17 0755 Results 24 hrs Laboratory Tests Test 05/03/17 05:51 Prothrombin Time 25.5 H Prothrombin Time Ratio 2.0 INR International Normalized Ratio 2.26 Medications Medications Current Medications Metoprolol Succinate (Toprol Xl) 25 mg BID PO Last administered on 04/30/17 09 :05; Admin Dose 25 MG; Start 04/23/17 at 09:00 Zolpidem Tartrate (Ambien) 10 mg QHS PRN PO INSOMNIA Last administered on 21:10; Admin Dose 10 MG; Start 04/23/17 at 02:00 Ondansetron HCl (Zofran Tab) 4 mg Q6H PRN PO NAUSEA AND/OR VOMITING; Start at 02:00 Nitroglycerin (Nitroglycerin (Sl Tab) 0.4 Mg) 1 tab Q5M PRN SL CHEST PAIN; Start 04/23/17 at 02:00 Acetaminophen (Tylenol Tab) 650 mg Q6H PRN PO PAIN LEVEL 1-3 OR FEVER; Start 04/23/17 at 02:00 Docusate Sodium (Colace) 100 mg Q12H PRN PO CONSTIPATION; Start 04/23/17 at 02 :00 Bisacodyl (Dulcolax) 5 mg DAILY PRN PO CONSTIPATION; Start 04/23/17 at 02:00 Enoxaparin Sodium (Lovenox) 65 mg Q12 SC Last administered on 05/03/17 09:05 ; Admin Dose 65 MG; Start 04/23/17 at 21:00 Al Hydrox/Mg Hydrox/Simethicone (Mag-Al Plus) 30 ml Q6H PRN PO GASTROINTESTINAL UPSET Last administered on 04/24/17 02:17; Admin Dose 30 ML; Start 04/24/17 at 01:30 Pantoprazole (Protonix Tab) 40 mg DAILY@06 PO Last administered on 05/03/17 05:55; Admin Dose 40 MG; Start 04/26/17 at 06:00 Cyclobenzaprine HCl (Flexeril) 10 mg TID PO Last administered on 05/03/17 09: 04; Admin Dose 10 MG; Start 04/25/17 at 13:00 Oxycodone/ Acetaminophen (Endocet (10/ 325)) 1 tab Q4H PRN PO PAIN Last administered on 04/29/17 17:49; Admin Dose 1 TAB; Start 04/29/17 at 13:00 Warfarin Sodium (Coumadin) 10 mg DAILY@17 PO Last administered on 05/02/17 18: 05; Admin Dose 10 MG; Start 05/02/17 at 17:00 ALEKSEY GENAO May 03, 2017 12:12
[2017-05-03] MEDS: WARFARIN 10 MG TAB PO SCH (18:03)
[2017-05-03] MEDS: OXYCODONE/ACETAMINOPHEN (10/325) TAB PO PRN (18:07)
[2017-05-04] MEDS: ZOLPIDEM 5 MG TAB PO PRN (01:25)
[2017-05-04] MEDS: ALBUTEROL HFA 8 GM INHALER INH SCH ×2 (02:00→09:28)
[2017-05-04 02:43] VITALS: BP 90/54; RESP 18
[2017-05-04] MEDS: PANTOPRAZOLE (EC) 40 MG TAB PO SCH (05:48)
[2017-05-04 06:55] LABS: INR 2.97; PROTIME 31.8 Sec (11.9-14.9); PT RATIO 2.5
[2017-05-04 08:13] VITALS: BP 96/53; RESP 18
[2017-05-04] MEDS: METOPROLOL (XL) 25 MG TAB PO SCH (09:00)
[2017-05-04] MEDS: CYCLOBENZAPRINE 10 MG TAB PO SCH (09:27)
[2017-05-04] MEDS: ENOXAPARIN 80 MG/0.8 ML SYG SC SCH (09:30)
[2017-05-04] MEDS: OXYCODONE/ACETAMINOPHEN (10/325) TAB PO PRN (09:35)
--- NOTE | 2017-05-04 09:57 | PN ---
Date/Time of Note Date/Time of Note DATE: 05/04/17 TIME: 09:57 Assessment/Plan VTE Prophylaxis VTE Prophylaxis Intervention: SCD's, other Lines/Catheters IV Catheter Type (from Nrsg): Saline Lock Urinary Cath still in place: No Assessment/Plan Assessment/Plan 1. Chest pain, most likely musculoskeletal in nature - Patient states pain has improved but still requiring some pain medications for relief. Flexeril providing relief as well but only plans to use in the pm due to sedating effects. - Cardiology on board and recommendations appreciated. Discussed with patient addressing metoprolol with manufacturing maintenance technician as her BP has been low so medications has been on hold majority of hospitalization - CT surgery on board and after discussion does not believe retained wires are causing this pain. - ECHO shows EF 55% and mechanical MV sitting in proper position - Patient had original surgery Mar 28, 2017 at [place]. Spoke with patients original CT surgeon who advises the patient not be discharged until her INR is at least 2 due to increased risk with mechanical MV (cell , Dr. Fabiano Moura) - Pain management consulted and appreciate recommendations 2. Leukocytosis- normalized - Continue monitoring - blood cultures obtained and are negative 3. Mechanical mitral valve - Patient on Coumadin and INR subtherapeutic. Goal 2.5 to 3.5. INR therapeutic and no need for Lovenox shots at this time - Will give Coumadin 7mg tonight and advised to have INR checked tmrw. Dosing per PCP 4. Elevated TSH - will advise to have repeated once acute issue resolves 5. Disposition - INR therapeutic. Advised to take 7mg tonight and follow up with INR tmrw - Medically stable for discharge home Subjective 24 Hr Interval Summary Free Text/Dictation Patient doing well but still experiencing musculoskeletal discomfort at site of surgical incision. No new complaints and no overnight events. Exam/Review of Systems Vital Signs Vitals Vital Signs Date Time Temp Pulse Resp B/P Pulse Ox O2 Delivery O2 Flow Rate FiO2 05/04/17 08:13 98.1 64 18 96/53 97 Intake and Output 05/03/17 05/03/17 05/04/17 14:59 22:59 06:59 Intake Total 800 ml 600 ml Balance 800 ml 600 ml Exam General: Patient is laying in bed and answers questions appropriately. in no acute distress Head: Normocephalic atraumatic Eyes: EOMI, pupils reactive to light Neck: Supple, nontender, midline Respiratory: Clear to auscultation bilaterally. no wheezes or rhonchi Cardiovascular: regular rate and rhythm. click appreciated Gastrointestinal: non-tender to palpation, bowel sounds heard. Neurological: Moves all extremities spontaneously Skin: No new skin lesions Results Result Diagram: 05/01/17 0755 05/01/17 0755 Results 24 hrs Laboratory Tests Test 05/04/17 05:44 Prothrombin Time 31.8 #H Prothrombin Time Ratio 2.5 INR International Normalized Ratio 2.97 Medications Medications Current Medications Metoprolol Succinate (Toprol Xl) 25 mg BID PO Last administered on 05/03/17 20:18; Admin Dose 25 MG; Start 04/23/17 at 09:00 Zolpidem Tartrate (Ambien) 10 mg QHS PRN PO INSOMNIA Last administered on 05/04 01:25; Admin Dose 10 MG; Start 04/23/17 at 02:00 Ondansetron HCl (Zofran Tab) 4 mg Q6H PRN PO NAUSEA AND/OR VOMITING; Start at 02:00 Nitroglycerin (Nitroglycerin (Sl Tab) 0.4 Mg) 1 tab Q5M PRN SL CHEST PAIN; Start 04/23/17 at 02:00 Acetaminophen (Tylenol Tab) 650 mg Q6H PRN PO PAIN LEVEL 1-3 OR FEVER; Start 04/23/17 at 02:00 Docusate Sodium (Colace) 100 mg Q12H PRN PO CONSTIPATION; Start 04/23/17 at 02 :00 Bisacodyl (Dulcolax) 5 mg DAILY PRN PO CONSTIPATION; Start 04/23/17 at 02:00 Enoxaparin Sodium (Lovenox) 65 mg Q12 SC Last administered on 05/04/17 09:30 ; Admin Dose 65 MG; Start 04/23/17 at 21:00 Al Hydrox/Mg Hydrox/Simethicone (Mag-Al Plus) 30 ml Q6H PRN PO GASTROINTESTINAL UPSET Last administered on 04/24/17 02:17; Admin Dose 30 ML; Start 04/24/17 at 01:30 Pantoprazole (Protonix Tab) 40 mg DAILY@06 PO Last administered on 05/04/17 05:48; Admin Dose 40 MG; Start 04/26/17 at 06:00 Cyclobenzaprine HCl (Flexeril) 10 mg TID PO Last administered on 05/04/17 09: 27; Admin Dose 10 MG; Start 04/25/17 at 13:00 Oxycodone/ Acetaminophen (Endocet (10/ 325)) 1 tab Q4H PRN PO PAIN Last administered on 05/04/17 09:35; Admin Dose 1 TAB; Start 04/29/17 at 13:00 Warfarin Sodium (Coumadin) 10 mg DAILY@17 PO Last administered on 05/03/17 18 :03; Admin Dose 10 MG; Start 05/02/17 at 17:00 MALVIN PERDUE MD May 04, 2017 09:57
[2017-05-04] MEDS ORDERED: OXYC-431 PO (10:02)
[2017-05-04] MEDS ORDERED: COU10 PO (10:02)
[2017-05-04] MEDS ORDERED: METO-335 PO (10:04)
[2017-05-04] MEDS ORDERED: CYCL-319 PO (10:04)
--- NOTE | 2017-05-04 10:10 | PDOCDIS ---
Discharge Instructions DIAGNOSIS Discharge Diagnosis 1. Chest pain secondary to musculoskeletal pain 2. Mechanical mitral valve CONDITION Patient Condition: Fair HOME CARE INSTRUCTIONS: Special Diet: regular ACTIVITY: Activity Restrictions: Slowly Increase Activity FOLLOW UP/APPOINTMENTS Follow-up Plan 1. Follow up with warfarin(coumadin) center for repeat INR tomorrow. Take 7mg of Coumadin tonight and continue dosing per PCP. Your INR today (05/04) was 2.97 after taking Coumadin 10mg for the past 4 days 2. Take Metoprolol 12.5mg daily if blood pressure if greater than 100. Discuss with your clay shop supervisor about this medication 3. Follow up with CT surgeon within 1-2 weeks 4. Follow up with clay shop supervisor within 1-2 weeks 5. Follow up with your primary care provider within 1-2 weeks MALVIN PERDUE MD May 04, 2017 10:10
--- NOTE | 2017-05-04 10:15 | DS ---
Date/Time of Note Date/Time of Note DATE: 05/04/17 TIME: 10:15 Discharge Summary Admission/Discharge Info Admit Date/Time Apr 24, 2017 at 11:21 Discharge Date/Time Discharge Diagnosis 1. Chest pain secondary to musculoskeletal pain 2. Mechanical mitral valve Patient Condition: Fair Consults Cardiology CT Surgery Procedures PROCEDURE: Portable chest x-ray. CLINICAL INDICATION: 36-year of age, female. Chest pain TECHNIQUE: Portable AP view of the chest. COMPARISON: None available. FINDINGS: Medical devices: There are wires projected over the heart that likely represent abandoned epicardial pacing wires. Sternal wires from previous cardiac surgery. There is a prosthetic heart valve. Cardiomediastinal contours are within normal limits. Lungs are clear. Negative for pleural effusion or pneumothorax. No acute bony abnormality. Additional comment: None. IMPRESSION: 1. Negative for evidence of an acute chest process. 2. Previous cardiac surgery with a prosthetic heart valve. Recommend correlation with surgical history. Suspected abandoned epicardial pacing wires. PROCEDURE: Ultrasound of the left chest wall. CLINICAL INDICATION: Left chest wall pain. TECHNIQUE: High-resolution sonography of the left chest wall at the site of the painful lesion was performed in the axial and sagittal planes. COMPARISON: CT scan of the chest dated 04/23/2017. FINDINGS: There is no fluid collection or mass. There is no abnormality at the site of the painful lesion. IMPRESSION: 1. No abnormality at the site of the painful lesion in the left chest wall. 2. Any further management regarding the left chest wall pain should be based on clinical grounds. PROCEDURE: XR Abdomen CLINICAL INDICATION: Pain TECHNIQUE: An AP supine radiograph of the abdomen was submitted. COMPARISON: Previous CT done 01/31/2009 FINDINGS: Surgical clips are again seen within the right upper quadrant compatible with a previous cholecystectomy. The bowel gas pattern is nonspecific. The liver now appears mildly enlarged but no mass is evident. No pathological calcification is identified. Contrast is seen within the bladder. The osseous elements appear unremarkable. The lung bases are clear. There is evidence of a previous midline sternotomy. IMPRESSION: 1. No previous cholecystectomy. 2. Nonspecific bowel gas pattern. 3. Development of mild hepatomegaly. 4. Contrast is no seen within the bladder. 5. Previous midline sternotomy. PROCEDURE: CTA CHEST WITH CONTRAST CLINICAL INDICATION: 36-year-old female with shortness of breath. TECHNIQUE: The study was performed utilizing a GE LightSpeed VCT 64-slice CT scanner. Direct axial sections were obtained from the thoracic inlet through the chest to the upper abdomen with a bolus injection of 100 cc of Omnipaque- 300 nonionic contrast material. Sagittal, coronal and maximal intensity projections re-formations were obtained. One or more of the following dose reduction techniques were utilized: automated exposure control, adjustment of the mA and/or kV according to patient's size and/or use of iterative reconstruction technique. DICOM images are available. The images were reviewed on a PACS workstation. CTD/vol = 35.5 mGy; Total Exam DLP = 313.0 mGy- cm. COMPARISON: Chest x-ray April 22, 2017. FINDINGS: The patient has had a prior median sternotomy. There is a mitral valvular replacement present. There is minimal pericardial thickening. Retained epicardial pacer wires are seen. The aorta is without aneurysmal dilatation or dissection. There are small lymph nodes seen within the mediastinum which are not pathologic by size criteria. The main pulmonary artery is mildly enlarged measuring 3.4 cm. The central pulmonary arteries are without evidence for filling defect to suggest pulmonary embolus or thrombus. Evaluation of the distal pulmonary arterial branches is limited secondary to incomplete opacification. There is no evidence for an infiltrate. No abnormal soft tissue masses or nodular densities are visualized. There is no evidence for a pneumothorax. Scans through the upper abdomen reveals that the upper liver is unremarkable. Surgical clips are present within the gallbladder fossa from prior cholecystectomy. The adrenal glands have a normal appearance. The upper kidneys are functional and are without evidence for obstruction. IMPRESSION: 1. No CTA evidence for thoracic aortic aneurysm/dissection or central pulmonary embolus. 2. Status post median sternotomy with mitral valvular replacement. 3. Retained epicardial pacer wires. 4. Status post cholecystectomy. Hx of Present Illness CC: Chest pain and shortness of breath The patient is a 36-year-old female, presenting to the ER because of chronic shortness of breath after she had mitral valve replacement at [facility] on March 28, 2017. She saw her surgeon about a week and a half ago and was told that those symptoms were normal. She complains of worsening shortness of breath and left-sided neck pain and left shoulder pain and intermittent left sided anterior chest pain for the last 4 days. She used to take lots of medication for her chronic low back pain including meloxicam, Neurontin, tramadol, ibuprofen however she stopped it about 2 months ago due to surgery. She denies pleuritic chest pain, abdominal pain, vomiting, dysuria, diarrhea. She does not drink, smokes socially. Her left sided chest pain is above her left breast and its tender on palpation. Allergies: nkda meds: see mar Exam General: Patient is well-developed well-nourished HEENT: Atraumatic, normocephalic. The pupils are equal, round and reactive. Extraocular motor are intact Neck: Supple with full range of motion. No rigidity or meningismus Chest: Tender to palpation at the level of the left anterior chest wall above the left breast Lungs: Clear to auscultation bilaterally no crackles rales or wheezing Heart: Regular rate rhythm, click murmur Abdomen: Soft , mild epigastric tenderness palpation, distended, bowel sounds are present. No guarding no rebound tenderness , No masses or organomegaly. No costovertebral temporal angle mass Extremities: Normal to inspection, no edema no cyanosis Neurologic: Normal mental status, speech normal, cranial nerves II through XII are intact, motor and sensory are intact, no focal weakness Hospital Course 36-year-old female with past medical history of recent mitral valve replacement who presented originally for chest pain, found to have musculoskeletal chest pain. She was treated with NSAID as well as muscle relaxant for relief. Cardiology and CT surgery were consulted for further recommendations given imaging studies showed retained pacer wires. Per specialists, wires are not the etiology of pain. Outpatient cardiothoracic surgeon who performed mitral valve replacement called for update on patient and recommended an INR above 2.0 before patient can be discharged home. Patient underwent warfarin bridge with Lovenox while hospitalized however her INR took multiple doses of 10mg of Warfarin to reach therapeutic INR. There was also a delay in getting home health as well as lovenox injection approval. Patient achieved INR of 2.9 and was discharge home on Warfarin. She did not require lovenox bridging. Patient was instructed to take 7mg and follow up with her Coumadin clinic for further dosing. She was discharged home in stable condition with instructions to follow -up with CT surgery and cardiology as soon as possible. Home Meds Active Scripts Metoprolol Succinate* (Toprol XL*) 25 Mg Tab.sr.24h, 12.5 MG PO DAILY for 30 Days, #30 TAB Prov:MALVIN PERDUE MD 12/11/17 Cyclobenzaprine Hcl* (Cyclobenzaprine Hcl*) 10 Mg Tablet, 10 MG PO TID Y for MUSCLE SPASMS for 10 Days, #21 TAB Prov:MALVIN PERDUE MD 05/04/17 Oxycodone HCl/Acetaminophen (Oxycodone-Acetaminophen 10-325) 1 Each Tablet, 1 TAB PO Q4H Y for PAIN for 10 Days, #20 TAB Prov:MALVIN PERDUE MD 05/04/17 Warfarin Sodium (Coumadin) 10 Mg Tablet, 7 MG PO DAILY@17 for 30 Days, #30 TAB Prov:MALVIN PERDUE MD 05/04/17 Reported Medications Albuterol Sulfate* (Ventolin HFA*) 18 Gm Hfa.aer.ad, 2 PUFF INHALATION Q6H, #1 INHALER 04/22/17 Discontinued Reported Medications Warfarin Sodium* (Warfarin Sodium*) 4 Mg Tablet, 4 MG PO DAILY, TAB 04/22/17 Metoprolol Succinate* (Toprol XL*) 25 Mg Tab.sr.24h, 25 MG PO BID, #30 TAB 04/22/17 Zolpidem Tartrate* (Zolpidem Tartrate*) 10 Mg Tablet, 10 MG PO QHS Y for INSOMNIA, #30 TAB 04/22/17 Follow-up Plan 1. Follow up with warfarin(coumadin) center for repeat INR tomorrow. Take 7mg of Coumadin tonight and continue dosing per PCP. Your INR today (05/04) was 2.97 after taking Coumadin 10mg for the past 4 days 2. Take Metoprolol 12.5mg daily if blood pressure if greater than 100. Discuss with your fisheries management biologist about this medication 3. Follow up with CT surgeon within 1-2 weeks 4. Follow up with fisheries management biologist within 1-2 weeks 5. Follow up with your primary care provider within 1-2 weeks Primary Care Provider Nohemi Poole MD Time spent on discharge: > 30 minutes Pending Labs Laboratory Tests Test 05/04/17 05:44 Prothrombin Time 31.8Sec (11.9-14.9) Prothrombin Time Ratio 2.5 INR International Normalized Ratio 2.97 Copies To: CC: NOHEMI POOLE MD, ERIN MD May 04, 2017 10:15
== END 2017-05-04 12:29 | disposition home or self-care (01) | DRG 313 ==
LOC: E/R 22:14 → MS4 04-23 01:34 → OBSVTOIN 04-24 11:21 → PP2 05-03 18:50
PROVIDERS: ADMIT Family Medicine; ATTEND Family Medicine
DX: R07.89 Other chest pain (principal); D72.829 Elevated white blood cell count, unspecified; G89.29 Other chronic pain; M54.5 Low back pain; R79.89 Other specified abnormal findings of blood chemistry; Z79.1 Long term (current) use of non-steroidal anti-inflammatories (NSAID); Z79.891 Long term (current) use of opiate analgesic; Z98.890 Other specified postprocedural states; Z95.2 Presence of prosthetic heart valve; Z79.01 Long term (current) use of anticoagulants
CPT/HCPCS: 71010; 71275; 74000; 76536; 80048; 80053; 80061; 80069; 81003; 82550; 82553; 83036; 83735; 83880; 84100; 84443; 84484; 85025; 85378; 85610; 85651; 85730; 86140; 87040; 93005; 93306; G0378; J1885; J2270; J7030; J7040; Q9967

== ENCOUNTER 2018-12-03 21:56 | Emergency (ER) | payer SELFPAY ==
[~2018-12-03] VITALS: Ht 193 cm; Wt 60.0 kg
[~2018-12-03 21:56] MED LIST: ALBU18HF INHALATION; COU10 PO; CYCL10TA7 PO; METO-335 PO; OXYC-431 PO
[2018-12-03 22:10] VITALS: BP 135/68; PULSE 92; RESP 18; Ht 193 cm; Wt 60.0 kg
[2018-12-05] MEDS ORDERED: WARF6TAB PO (18:32)
== END 2018-12-04 01:29 | disposition left against medical advice (07) ==
LOC: FTE 21:56
DX: Z53.21 Procedure and treatment not carried out due to patient leaving prior to being seen by health care provider (principal)

== ENCOUNTER 2018-12-05 17:25 | Emergency (ER) | payer BC, OTHER ==
[~2018-12-05] VITALS: Ht 152.4 cm; Wt 62.0 kg
[2018-12-05 17:29] VITALS: Ht 152.4 cm; Wt 62.0 kg
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
[2018-12-05] MEDS ORDERED: WARFARIN 3 MG TAB PO ONE (18:30)
[2018-12-05] MEDS ORDERED: WARF6TAB PO (18:32)
[2018-12-05 19:08] VITALS: BP 113/67; PULSE 67; RESP 18
== END 2018-12-05 19:08 | disposition home or self-care (01) ==
LOC: FTE 17:25
DX: Z76.0 Encounter for issue of repeat prescription (principal); F17.210 Nicotine dependence, cigarettes, uncomplicated; Z79.01 Long term (current) use of anticoagulants
CPT/HCPCS: 36415; 85025; 85610; 85730; Z7502; Z7610; 99283